=== PATIENT | male | born 1970 | race Caucasian/White ===

== ENCOUNTER 2017-04-28 09:57 | Inpatient (IN) | payer BC, MEDICAID ==
[2017-04-28 10:10] VITALS: BMI 32.3
--- NOTE | 2017-04-28 10:32 | ED PDOC ---
Arrival/HPI - General Chief Complaint: Back Pain Time Seen by Provider: 04/28/17 10:25 Historian: Patient - History of Present Illness Narrative History of Present Illness (Text): 04/28/17 10:25 46 y/o male, no significant pmh, nkda, c/o lt. sided shoulder/flank pain x 1 week. Aching pain, aggravated by the movement, no numbness or tingling, no coughing or night sweat, no dizziness, no rash, admits feels the difficulty get the air in, no coughing, no leg or thigh pain, no numbness or tingling, no other medical or psychological complaints. 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 - Psychiatric Hx Depression: No Hx Emotional Abuse: No Hx Physical Abuse: No Hx Substance Use: No - Surgical History Other/Comment: cyst removed from brain - Anesthesia Hx Anesthesia: Yes Hx Anesthesia Reactions: No - Suicidal Assessment Feels Threatened In Home Enviroment: No Family/Social History - Physician Review Nursing Documentation Reviewed: Yes Family/Social History: Unknown Family HX Smoking Status: Current Some Days Smoker Hx Alcohol Use: Yes Frequency of alcohol use: Socially Hx Substance Use: No Hx Substance Use Treatment: No Allergies/Home Meds Allergies/Adverse Reactions: Allergies No Known Allergies Allergy (Verified 04/28/17 10:10) Home Medications: Home Meds Medication Instructions Recorded Confirmed No Known Home Med 01/07/13 04/28/17 Review of Systems - Review of Systems Constitutional: absent: Fatigue, Fevers Eyes: absent: Vision Changes ENT: absent: Hearing Changes Respiratory: absent: SOB, Cough Cardiovascular: absent: Chest Pain Gastrointestinal: absent: Abdominal Pain, Nausea, Vomiting Musculoskeletal: Back Pain, Myalgias. absent: Arthralgias, Neck Pain, Joint Swelling Skin: absent: Rash, Pruritis Physical Exam Vital Signs Reviewed: Yes Vital Signs Temp Pulse Resp BP Pulse Ox 04/28/17 13:54 106 H 18 137/84 96 04/28/17 11:49 97.4 F L 105 H 22 120/79 97 04/28/17 10:13 97.8 F 100 H 19 123/86 99 Temperature: Afebrile Blood Pressure: Normal Pulse: Regular Respiratory Rate: Normal Appearance: Positive for: Well-Appearing, Non-Toxic Pain Distress: Moderate Mental Status: Positive for: Alert and Oriented X 3 - Systems Exam Head: Present: Atraumatic, Normocephalic Pupils: Present: PERRL Extroacular Muscles: Present: EOMI Conjunctiva: Present: Normal Mouth: Present: Moist Mucous Membranes Neck: Present: Normal Range of Motion, Paraspinal Tenderness (+ttp on the lt. trapezius muscle region. ). No: MIDLINE TENDERNESS Respiratory/Chest: Present: Clear to Auscultation, Good Air Exchange, Decreased Breath Sounds (Left lower lobe region). No: Respiratory Distress, Accessory Muscle Use, Wheezes, Rales, Retracting, Rhonchi, Tachypneic, Tender to Palpation Cardiovascular: Present: Regular Rate and Rhythm, Normal S1, S2. No: Murmurs Abdomen: Present: Normal Bowel Sounds. No: Tenderness, Distention, Peritoneal Signs Back: Present: Normal Inspection, CVA Tenderness (lt. ). No: Midline Tenderness , Paraspinal Tenderness Upper Extremity: Present: Normal Inspection. No: Cyanosis, Edema Lower Extremity: Present: Normal Inspection. No: Edema Neurological: Present: GCS=15, Speech Normal, Motor Func Grossly Intact, Gait Normal, Memory Normal Skin: Present: Warm, Dry, Normal Color. No: Rashes Psychiatric: Present: Alert, Oriented x 3, Normal Insight, Normal Concentration Medical Decision Making ED Course and Treatment: 04/28/17 10:36 -labs/cardiac trop/bnp/d-dimer/ua -cxr/ekg -IVF/toradol -observe and reassess 04/28/17 13:33 -Chest xray: no active disease -EKG: Sinus Tachycardia @ 104 BPM, no ST elevation or depression, T wave inversion noted on lead III. -CTA/CT abdomen and pelvis: show no PE but there is pneumonia with moderate left pleural effusion, mild rt. pleural effusion -Labs are non-significant except: wbc 16.3 (blood cultures and IV rocephine/ azithromycin), d-dimer 1.65 (CTA performed, no PE), BUN 23 (IVF ordered) -Pt. still has pain, morphine 4mg IV ordered -Blood cultures, IV rocephine and azithromycin ordered. 04/28/17 13:57 -I discussed with the patient about the observation into the hospital since there is pleural effusion with consolidatio, on the CT chest with leukocytosis plus tachycardic, pt. agreed -Hospitalist paged. 04/28/17 14:06 -I spoke to Dr. Rosario tidwell, discussed about the case/labs/radiology studies, agreed to admit for observation remote tele, she will follow up the care -I spoke to DR. Whiting and he will put in admission. - Lab Interpretations Lab Results: 04/28/17 11:21 04/28/17 11:21 Lab Results 04/28/17 11:40: Urine Color Yellow, Urine Appearance Clear, Urine pH 6.0, Ur Specific Chadron 1.025, Urine Protein Trace H, Urine Glucose (UA) Negative, Urine Ketones 40 H, Urine Blood Negative, Urine Nitrate Negative, Urine Bilirubin Negative, Urine Urobilinogen 0.2, Ur Leukocyte Esterase Negative, Urine RBC Negative, Urine WBC 0 - 2, Ur Epithelial Cells 0 - 2, Urine Bacteria Small 04/28/17 11:21: Sodium 141, Potassium 4.2, Chloride 100, Carbon Dioxide 30, Anion Gap 15, BUN 23 H, Creatinine 0.9, Est GFR ( Amer) > 60, Est GFR ( Non-Af Amer) > 60, Random Glucose 113 H, Calcium 10.2, Total Bilirubin 1.4 H, AST 56, ALT 99 H, Alkaline Phosphatase 130, Lactate Dehydrogenase 454, Total Creatine Kinase 55, Troponin I < 0.01, NT-Pro-B Natriuret Pep 64.0, Total Protein 8.3, Albumin 4.5, Globulin 3.9, Albumin/Globulin Ratio 1.2, Lipase 87 04/28/17 11:21: D-Dimer, Quantitative 1.65 H 04/28/17 11:21: WBC 16.3 H, RBC 4.28, Hgb 14.7, Hct 43.1, MCV 100.7, MCH 34.3, MCHC 34.1, RDW 12.1, Plt Count 240, MPV 11.0, Gran % 88.8 H, Lymph % (Auto) 6.0 L, Kay % (Auto) 4.9, Eos % (Auto) 0.1 L, Baso % (Auto) 0.2, Gran # 14.46 H, Lymph # 1.0 L, Kay # 0.8 H, Eos # 0.0, Baso # 0.03 I have reviewed the lab results: Yes Interpretation: Abnormal lab values (wbc 16.3, d-dimer 1.65, BUN 23) - RAD Interpretation Radiology Orders: 04/28/17 10:32 CHEST PORTABLE [RAD] Stat 04/28/17 11:41 ABDOMEN & PELVIS [ABD & PELVIS IV CONTRAST ONLY] [CT] Stat ANGIO CHEST PE PROTOCOL [CT] Stat -Chest xray: no active disease CT Chest: IMPRESSION: Dense consolidation with air bronchograms in the left lower lobe consistent with pneumonia. Small left pleural effusion CT Abdomen and pelvis: IMPRESSION: Moderate left pleural effusion consolidation at the left base. Small right pleural effusion. Operations Section Manager: Radiologist - EKG Interpretation EKG Interpretation (Text): 04/28/17 11:49 -EKG: Sinus Tachycardia @ 104 BPM, no ST elevation or depression, T wave inversion noted on lead III. Interpreted by ED Physician: Yes Type: 12 lead EKG - Medication Orders Current Medication Orders: Sodium Chloride (Sodium Chloride 0.9%) 1,000 mls @ 100 mls/hr IV .Q10H KERRY Last Admin: 04/28/17 10:58 Dose: 100 mls/hr Azithromycin (Zithromax 500mg In Ns) 500 mg in 250 mls @ 167 mls/hr IVPB STAT STA PRN Reason: Protocol Stop: 04/28/17 14:54 Discontinued Medications Ceftriaxone Sodium (Rocephin 1 Gram Ivpb) 1 gm in 100 mls @ 200 mls/hr IVPB STAT STA PRN Reason: Protocol Stop: 04/28/17 13:54 Last Admin: 04/28/17 13:40 Dose: 200 mls/hr Iohexol (Omnipaque 350 100 Ml) Confirm Administered Dose 350 mg .ROUTE .STK-MED ONE Stop: 04/28/17 11:51 Ketorolac Tromethamine (Toradol) 30 mg IVP STAT STA Stop: 04/28/17 10:35 Last Admin: 04/28/17 10:58 Dose: 30 mg Morphine Sulfate (Morphine) 4 mg IVP STAT STA Stop: 04/28/17 13:25 Last Admin: 04/28/17 13:40 Dose: 4 mg - PA / SENIOR POWER SCHEDULER / Resident Statement / has reviewed & agrees with the documentation as recorded. Disposition/Present on Arrival - Present on Arrival Any Indicators Present on Arrival: Yes History of DVT/PE: No History of Uncontrolled Diabetes: No Urinary Catheter: No History of Decub. Ulcer: No History Surgical Site Infection Following: None - Disposition Have Diagnosis and Disposition been Completed?: Yes Diagnosis: Pneumonia, Pleural effusion, Leukocytosis, Dehydration Disposition: HOSPITALIZED Disposition Time: 13:39 Patient Plan: Observation, Telemetry Patient Problems: Current Active Problems Problem Status Onset Pneumonia Acute Pleural effusion Acute Leukocytosis Acute Dehydration Acute Condition: STABLE Referrals: PCP,NO [Primary Care Provider] - Follow up with primary Forms: [facility] ([place])
[2017-04-28] MEDS: Sodium Chloride 0.9% 1,000 ML IV SCH ×2 (10:58→17:58)
[2017-04-28 11:22] LABS: ADD MANUAL DIFF? NO
--- NOTE | 2017-04-28 11:23 | RAD ---
HISTORY: lt. sided flank pain COMPARISON: No prior. FINDINGS: LUNGS: No active pulmonary disease. PLEURA: No significant pleural effusion identified, no pneumothorax apparent. CARDIOVASCULAR: Normal. OSSEOUS STRUCTURES: No significant abnormalities. VISUALIZED UPPER ABDOMEN: Normal. OTHER FINDINGS: None. IMPRESSION: No active disease.
[2017-04-28 11:25] LABS: BASO # 0.03 K/mm3 (0.0-2.0); BASO % 0.2 % (0.0-3.0); EOS % 0.1 % (1.5-5.0); GRAN # 14.46 (1.4-6.5); GRAN % 88.8 % (50.0-68.0); HEMATOCRIT 43.1 % (42.0-52.0); MEAN CELL VOLUME 100.7 fl (80.0-105.0); MEAN CORPUSCULAR HEMOGLOBIN 34.3 pg (25.0-35.0); MEAN CORPUSCULAR HGB CONC 34.1 g/dl (31.0-37.0); MONO # 0.8 (0.1-0.6); MONO % 4.9 % (1.0-6.0); PLATELET COUNT 240 10^3/uL (120.0-450.0); RED CELL DISTRIBUTION WIDTH 12.1 % (11.5-14.5); WHITE BLOOD COUNT 16.3 10^3/ul (4.5-11.0)
[2017-04-28 11:36] LABS: ALB/GLOB RATIO 1.2 (1.1-1.8); ALKALINE PHOSPHATASE 130 U/L (38-133); ALT/SGPT 99 U/L (7-56); AST/SGOT 56 U/L (15-59); BILIRUBIN,TOTAL 1.4 mg/dL (0.2-1.3); BLOOD UREA NITROGEN 23 mg/dL (7-21); CALCIUM 10.2 mg/dL (8.4-10.5); CARBON DIOXIDE 30 mmol/L (21-33); CHLORIDE 100 mmol/L (98-107); GFR AFRICAN-AMERICAN > 60; GLUCOSE,RANDOM 113 mg/dL (70-110); LIPASE 87 U/L (23-300); POTASSIUM 4.2 mmol/L (3.6-5.0); SODIUM 141 mmol/L (132-148); TOTAL PROTEIN 8.3 g/dL (5.8-8.3)
[2017-04-28 11:50] LABS: TROPONIN I < 0.01 ng/mL
[2017-04-28] MEDS ORDERED: Iohexol 350 MG/100 ML VIAL ONE (11:50)
[2017-04-28 12:06] LABS: URINE BILIRUBIN NEGATIVE (NEGATIVE); URINE BLOOD NEGATIVE (NEGATIVE); URINE GLUCOSE (UA) NEGATIVE (NEGATIVE); URINE KETONE 40 mg/dL (NEGATIVE); URINE LEUKOCYTE ESTERASE NEGATIVE Leu/uL (NEGATIVE); URINE PROTEIN TRACE mg/dL (<30 mg/dL); URINE UROBILINOGEN 0.2 E.U./dL (<1 E.U./dL)
[2017-04-28 12:07] LABS: URINE APPEARANCE CLEAR (CLEAR); URINE COLOR YELLOW (YELLOW)
[2017-04-28 12:15] LABS: URINE BACTERIA SMALL (NEG); URINE EPITHELIAL CELLS 0 - 2 /hpf (0-5); URINE RBC NEGATIVE /hpf (0-2); URINE WBC 0 - 2 /hpf (0-6)
--- NOTE | 2017-04-28 12:32 | CT ---
PROCEDURE: CT Chest with contrast (Pulmonary Angiogram) HISTORY: d-dimer elevated, flank pain COMPARISON: None available. TECHNIQUE: Axial computed tomography images were obtained of the chest in the pulmonary arterial phase of enhancement. Coronal and sagittal reformatted images were created and reviewed. Intravenous contrast dose: 100 cc of Omni 350 Radiation dose: Total exam DLP = 777 mGy-cm. This CT exam was performed using one or more of the following dose reduction techniques: Automated exposure control, adjustment of the mA and/or kV according to patient size, and/or use of iterative reconstruction technique. FINDINGS: PULMONARY ARTERIES: Unremarkable. No pulmonary embolism. AORTA: No acute findings. No thoracic aortic aneurysm. 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 This is a normal variation LUNGS: There is dense consolidation in the left lower lobe consistent with pneumonia. There is a small effusion PLEURAL SPACES: Unremarkable. No effusion or pneuomothorax. HEART: Unremarkable. No cardiomegaly. No significant pericardial effusion. LYMPH NODES: No lymphadenopathy. BONES, CHEST WALL: Unremarkable. No fracture or destructive lesion OTHER FINDINGS: Unremarkable. IMPRESSION: Dense consolidation with air bronchograms in the left lower lobe consistent with pneumonia. Small left pleural effusion
[2017-04-28] MEDS ORDERED: Morphine 4 mg/ml ISec IVP STA (13:24)
--- NOTE | 2017-04-28 13:24 | CT ---
PROCEDURE: CT Abdomen and Pelvis with contrast HISTORY: lt. sided flank pain COMPARISON: None. TECHNIQUE: Contrast dose: 100 cc of Omnipaque 300 Radiation dose: Total exam DLP = 844 mGy-cm. This CT exam was performed using one or more of the following dose reduction techniques: Automated exposure control, adjustment of the mA and/or kV according to patient size, and/or use of iterative reconstruction technique. FINDINGS: LOWER THORAX: Moderate left pleural effusion consolidation at the left base. Small right pleural effusion. LIVER: Unremarkable. No gross lesion or ductal dilatation. GALLBLADDER AND BILE DUCTS: Unremarkable. PANCREAS: Unremarkable. No gross lesion or ductal dilatation. SPLEEN: Unremarkable. ADRENALS: Unremarkable. No mass. KIDNEYS AND URETERS: Unremarkable. No hydronephrosis. No solid mass. VASCULATURE: Unremarkable. No aortic aneurysm. BOWEL: Unremarkable. No obstruction. No gross mural thickening. APPENDIX: Normal appendix. PERITONEUM: Unremarkable. No free fluid. No free air. LYMPH NODES: Unremarkable. No enlarged lymph nodes. BLADDER: Unremarkable. REPRODUCTIVE: Unremarkable. BONES: No acute fracture. OTHER FINDINGS: None. IMPRESSION: Moderate left pleural effusion consolidation at the left base. Small right pleural effusion.
[2017-04-28] MEDS ORDERED: Azithromycin 500MG/NS 250ml 500 MG/250 ML BAG IVPB STA (13:25)
[2017-04-28] MEDS ORDERED: cefTRIAXone 1 gm 1 GM/100 ML BAG IVPB STA (13:25)
[2017-04-28] MEDS ORDERED: Albuterol-Ipratrop 3 mg / 0.5 (3 ml) UD IH PRN (15:06)
--- NOTE | 2017-04-28 15:30 | CP.PCM.HP ---
<Shirley Ruano - Last Filed: 04/28/17 15:54> History of Present Illness - History of Present Illness History of Present Illness: Patient is a 46 M with pmhx of rheumatic fever as a child, and colloid brain cyst s/p resection presents to the ED for Shoulder pain that started 1 week ago. Patient denies any inciting events. Reports that pain is sharp in nature, worse with deep breathing and radiates to the L subcostal region. States that he used a lidocaine patch, motrin with relief. Pain resolved on Monday however pain returned last night and woke him up out of his sleep. Pain is now constant and increased in intensity. Patient denies any recent sick contacts, recent travel, fevers, chills, nausea, vomiting, CP, SOB, abdominal pain, urinary symptoms, changes in bowel habits. Elevated D Dimer in ED 1.65, CTA chest showing dense consolidation with airbronchograms in LLL c/w pneumonia. ED Course: Azithromycin x 1 dose, Rocephin x 1 dose, NS bolus x 1, Morphine 4mg IVP, Toradol 30 mg Allergies: NKDA Medications: Denies Medical Hx: Rheumatic fever as a child, Colloid cyst Surgical Hx: Removal of colloid cyst (2006), Discectomy (2013) Social Hx: Unemployed, lives with family, smoked 1-2 blunts/day, denies alcohol , tobacco use Family Hx: Mother - HTN, Glaucoma Present on Admission - Present on Admission Any Indicators Present on Admission: No History of DVT/PE: No History of Uncontrolled Diabetes: No Urinary Catheter: No Decubitus Ulcer Present: No Review of Systems - Review of Systems All systems: reviewed and no additional remarkable complaints except - Constitutional Constitutional: absent: Chills, Fatigue, Fever, Headache, Weight Loss, Weakness - EENT Eyes: absent: Change in Vision Ears: absent: Dizziness - Cardiovascular Cardiovascular: absent: Chest Pain, Dyspnea, Edema, Lightheadedness, Palpitations, Syncope - Respiratory Respiratory: absent: Cough, Dyspnea, Wheezing - Gastrointestinal Gastrointestinal: absent: Abdominal Pain, Constipation, Cramping, Diarrhea, Nausea, Vomiting - Genitourinary Genitourinary: absent: Difficulty Urinating, Dysuria, Urinary Frequency - Musculoskeletal Musculoskeletal: absent: Limited Range of Motion, Numbness, Tingling Additional comments: +L Shoulder pain - Neurological Neurological: absent: Dizziness, Headaches, Weakness - Psychiatric Psychiatric: absent: Anxiety, Depression Past Patient History - Infectious Disease Hx of Infectious Diseases: None - Past Social History Smoking Status: Current Some Days Smoker - CARDIAC Hx Cardiac Disorders: Yes 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 - PSYCHIATRIC Hx Depression: No Hx Emotional Abuse: No Hx Physical Abuse: No Hx Substance Use: No - SURGICAL HISTORY Other/Comment: cyst removed from brain - ANESTHESIA Hx Anesthesia: Yes Hx Anesthesia Reactions: No Meds Allergies/Adverse Reactions: Allergies Allergy/AdvReac Type Severity Reaction Status Date / Time No Known Allergies Allergy Verified 04/28/17 10:10 Physical Exam - Constitutional Appears: Well, No Acute Distress - Head Exam Head Exam: ATRAUMATIC, NORMAL INSPECTION - Eye Exam Eye Exam: EOMI, Normal appearance Pupil Exam: NORMAL ACCOMODATION - ENT Exam ENT Exam: Mucous Membranes Moist - Neck Exam Neck exam: Positive for: Normal Inspection Additional comments: +TTP of L trap muscle - Respiratory Exam Respiratory Exam: Decreased Breath Sounds, NORMAL BREATHING PATTERN. absent: Rales, Rhonchi, Wheezes - Cardiovascular Exam Cardiovascular Exam: REGULAR RHYTHM, +S1, +S2. absent: Systolic Murmur - GI/Abdominal Exam GI & Abdominal Exam: Normal Bowel Sounds, Soft. absent: Guarding, Rebound, Rigid, Tenderness - Extremities Exam Extremities exam: Positive for: normal capillary refill, normal inspection, pedal pulses present. Negative for: calf tenderness, pedal edema - Back Exam Back exam: NORMAL INSPECTION. absent: CVA tenderness (L), CVA tenderness (R), rash noted - Neurological Exam Neurological exam: Alert, CN II-XII Intact, Normal Gait, Oriented x3, Reflexes Normal - Psychiatric Exam Psychiatric exam: Normal Affect, Normal Mood - Skin Skin Exam: Normal Color, Warm Results - Vital Signs Recent Vital Signs: Last Vital Signs Temp 97.4 F L 04/28/17 11:49 Pulse 106 H 04/28/17 13:54 Resp 18 04/28/17 13:54 BP 137/84 04/28/17 13:54 Pulse Ox 96 04/28/17 13:54 - Labs Result Diagrams: 04/28/17 11:21 04/28/17 11:21 Assessment & Plan - Assessment and Plan (Free Text) Assessment: 46 M with pmhx of rheumatic fever as a child and colloid cyst presents with 1 week history of shoulder pain that radiates to L subcostal region. CT chest showing dense consolidation with air bronchograms in Left lower lobe consistent with pneumonia, small L pleural effusion Plan: 1. Sepsis likely 2/2 to community acquired pneumonia -Stable, afebrile -Leukocytosis 16.3, tachycardic with HR in 100s -CT chest findings noted above -Received Azithromycin and Rocephin in the ED -Continue Azithromycin and Rocephin -Continue NS @ 100cc/hr -Tylenol prn fever, Motrin prn pain -Duonebs prn SOB -F/U am Labs -F/U urine strep pneumo ag, legionella ag -Encourage ISS use -Encourage PO hydration -F/U blood cx, sputum cx -F/U procalcitonin 2. L sided pleural effusion, likely parapneumotic -R/O cardiac causes -F/U echo, AM CXR -Continue to monitor 3. Transaminitis, Hyperbilirubinemia, mild -AST/ALT: 56/99 T bili: 1.4 -CT abd/pelvis: Liver unremarkable, no gross lesions or ductal dilation, gallbladder unremarkable -F/U hepatitis panel -F/U am CMP, UDS -Avoid hepatotoxic agents 4. GI/DVT PPx -Protonix 40mg PO daily -Lovenox 40mg daily <Katt HERNANDEZ,Yolette - Last Filed: 04/28/17 16:39> Results - Vital Signs Recent Vital Signs: Last Vital Signs Temp 97.4 F L 04/28/17 11:49 Pulse 106 H 04/28/17 13:54 Resp 18 04/28/17 13:54 BP 137/84 04/28/17 13:54 Pulse Ox 96 04/28/17 13:54 - Labs Result Diagrams: 04/28/17 11:21 04/28/17 11:21 Attending/Attestation - Attestation I have personally seen and examined this patient.: Yes I have fully participated in the care of the patient.: Yes I have reviewed all pertinent clinical information: Yes Notes (Text): 04/28/17 16:33 Patient was seen and examined with medical housekeeper. Agreed with resident assessment and plan. 46 M with pmhx of rheumatic fever as a child, and colloid brain cyst s/p resection , SP back surgery and drug abuse is admitted with left lower lobe CAP with parapneumonic effusion.We will continue IV antibiotics, will follow up cultures, we will also check urinary antigen for streptococcal Pneumonia and Legionella .We eliu also monitor LFT. Management plan was discussed in detail with patient Education was provided.
[2017-04-28] MEDS ORDERED: Pneumococcal 23-Valent Vaccine IM ONE (18:28)
[2017-04-28] MEDS: Enoxaparin 40 mg Syringe SC SCH (21:31)
--- NOTE | 2017-04-28 23:34 | CARD ---
APPROVED REPORT EKG Measurement Heart [id number] <Conclusion> Sinus tachycardia Otherwise normal ECG
[2017-04-29] MEDS: Sodium Chloride 0.9% 1,000 ML IV SCH ×2 (04:13→17:02)
[2017-04-29 07:15] LABS: ADD MANUAL DIFF? NO
[2017-04-29 07:20] LABS: BASO # 0.02 K/mm3 (0.0-2.0); BASO % 0.1 % (0.0-3.0); EOS % 0.1 % (1.5-5.0); GRAN # 13.76 (1.4-6.5); GRAN % 85.5 % (50.0-68.0); HEMATOCRIT 38.7 % (42.0-52.0); LYMPH # 1.2 (1.2-3.4); LYMPH % 7.2 % (22.0-35.0); MEAN CELL VOLUME 99.7 fl (80.0-105.0); MEAN CORPUSCULAR HEMOGLOBIN 33.2 pg (25.0-35.0); MEAN CORPUSCULAR HGB CONC 33.3 g/dl (31.0-37.0); MEAN PLATELET VOLUME 11.2 fl (7.0-11.0); MONO # 1.1 (0.1-0.6); MONO % 7.1 % (1.0-6.0); PLATELET COUNT 213 10^3/uL (120.0-450.0); RED CELL DISTRIBUTION WIDTH 12.1 % (11.5-14.5); WHITE BLOOD COUNT 16.1 10^3/ul (4.5-11.0)
[2017-04-29 07:33] LABS: ALB/GLOB RATIO 1.1 (1.1-1.8); ALKALINE PHOSPHATASE 113 U/L (38-133); ALT/SGPT 71 U/L (7-56); AST/SGOT 31 U/L (15-59); BILIRUBIN,TOTAL 1.4 mg/dL (0.2-1.3); BLOOD UREA NITROGEN 14 mg/dL (7-21); CALCIUM 9.2 mg/dL (8.4-10.5); CARBON DIOXIDE 26 mmol/L (21-33); CHLORIDE 103 mmol/L (98-107); GFR AFRICAN-AMERICAN > 60; GLUCOSE,RANDOM 114 mg/dL (70-110); POTASSIUM 3.7 mmol/L (3.6-5.0); SODIUM 138 mmol/L (132-148)
[2017-04-29] MEDS: Pantoprazole 40 mg EC Tab PO SCH (09:54)
[2017-04-29] MEDS: Enoxaparin 40 mg Syringe SC SCH (09:54)
[2017-04-29] MEDS ORDERED: cefTRIAXone 1 gm 1 GM/100 ML BAG IVPB SCH (10:00)
[2017-04-29] MEDS ORDERED: Azithromycin 500MG/NS 250ml 500 MG/250 ML BAG IVPB SCH (10:00)
--- NOTE | 2017-04-29 10:43 | RAD ---
HISTORY: Eval pulm effusion on left COMPARISON: April 28, 2017. TECHNIQUE: Chest PA and lateral FINDINGS: LUNGS: Worsening right lower lobe infiltrate. PLEURA: No discernible associated left pleural effusion. CARDIOVASCULAR: No radiographic findings to suggest acute or significant cardiovascular disease. OSSEOUS STRUCTURES: No acute findings. Healed right rib fractures. VISUALIZED UPPER ABDOMEN: Normal. OTHER FINDINGS: None. IMPRESSION: Worsening left lower lobe infiltrate. No demonstrable pleural effusion.
--- NOTE | 2017-04-29 13:36 | CP.PCM.PN ---
<Deangelo Swain - Last Filed: 04/29/17 14:01> Subjective - Date & Time of Evaluation Date of Evaluation: 04/29/17 Time of Evaluation: 07:05 - Subjective Subjective: Deangelo Swain DO, PGY-1, Hospitalist Services Dr. Bolivar Patient seen and examined at bedside. Nurse reports no events overnight. Patient denies any CP, SOB, N/V/D. Objective - Vital Signs/Intake and Output Vital Signs (last 24 hours): Temp Pulse Resp BP Pulse Ox 98.2 F 119 H 20 143/91 H 96 04/29/17 13:27 04/29/17 05:55 04/29/17 05:55 04/29/17 05:55 04/29/17 05:55 - Medications Medications: Current Medications Acetaminophen (Tylenol 325mg Tab) 650 mg PO Q4 PRN PRN Reason: Fever >100.4 F Last Admin: 04/28/17 23:00 Dose: 650 mg Albuterol/Ipratropium (Duoneb 3 Mg/0.5 Mg (3 Ml) Ud) 3 ml IH [id number] PRN PRN Reason: Shortness of Breath Enoxaparin Sodium (Lovenox) 40 mg SC DAILY KERRY PRN Reason: Protocol Last Admin: 04/29/17 09:54 Dose: 40 mg Sodium Chloride (Sodium Chloride 0.9%) 1,000 mls @ 100 mls/hr IV .Q10H [facility] Last Admin: 04/29/17 04:13 Dose: 100 mls/hr Azithromycin (Zithromax 500mg In Ns) 500 mg in 250 mls @ 167 mls/hr IVPB DAILY KERRY PRN Reason: Protocol Last Admin: 04/29/17 09:55 Dose: 167 mls/hr Piperacillin Sod/Tazobactam Sod (Zosyn 4.5 Gm In Ns 100ml) 4.5 gm in 100 mls @ 200 mls/hr IVPB Q6 KERRY PRN Reason: Protocol Stop: 04/30/17 00:29 Ibuprofen (Motrin Tab) 400 mg PO TID PRN PRN Reason: Pain, moderate (4-7) Last Admin: 04/29/17 10:04 Dose: 400 mg Pantoprazole Sodium (Protonix Ec Tab) 40 mg PO DAILY [facility] Last Admin: 04/29/17 09:54 Dose: 40 mg - Head Exam Additional comments: - Constitutional Appears: Well, No Acute Distress - Head Exam Head Exam: ATRAUMATIC, NORMAL INSPECTION - Eye Exam Eye Exam: EOMI, Normal appearance Pupil Exam: NORMAL ACCOMODATION - ENT Exam ENT Exam: Mucous Membranes Moist - Neck Exam Neck exam: Positive for: Normal Inspection Additional comments: +TTP of L trap muscle - Respiratory Exam Respiratory Exam: Decreased Breath Sounds, NORMAL BREATHING PATTERN. absent: Rales, Rhonchi, Wheezes - Cardiovascular Exam Cardiovascular Exam: REGULAR RHYTHM, +S1, +S2. absent: Systolic Murmur - GI/Abdominal Exam GI & Abdominal Exam: Normal Bowel Sounds, Soft. absent: Guarding, Rebound, Rigid, Tenderness - Extremities Exam Extremities exam: Positive for: normal capillary refill, normal inspection, pedal pulses present. Negative for: calf tenderness, pedal edema - Back Exam Back exam: NORMAL INSPECTION. absent: CVA tenderness (L), CVA tenderness (R), rash noted - Neurological Exam Neurological exam: Alert, CN II-XII Intact, Normal Gait, Oriented x3, Reflexes Normal - Psychiatric Exam Psychiatric exam: Normal Affect, Normal Mood - Skin Skin Exam: Normal Color, Warm Assessment and Plan - Assessment and Plan (Free Text) Assessment: 46 M with pmhx of rheumatic fever as a child and colloid cyst presents with 1 week history of shoulder pain that radiates to L subcostal region. CT chest showing dense consolidation with air bronchograms in Left lower lobe consistent with pneumonia, small L pleural effusion Plan: 1. Sepsis likely 2/2 to community acquired pneumonia -Febrile with leukocytosis -CT chest shows dense consolidation with air bronchograms in the left lower lobe consistent with pneumonia and a small left pleural effusion. - Stopped Ceftriaxone, and started Zosyn given persistent leukocytosis and fever , will consider stopping Azithromycin and starting Vancomycin if fever/ leukocytosis persist. -Continue NS @ 100cc/hr -Tylenol prn fever, Motrin prn pain -Duonebs prn SOB - Urine strep pneumo ag, legionella ag pending - Encourage Incentive Spirometry - Encourage PO hydration - Preliminary blood culture show no growth, gram stain pending - Sputum cultures pending 2. L sided pleural effusion, likely parapneumotic - Echocardiogram performed, read pending CXR - CXR today shows worsening of left lower lobe infiltrate 3. Transaminitis, Hyperbilirubinemia, mild - T bili: 1.4 as was yesterday -CT abd/pelvis: Liver unremarkable, no gross lesions or ductal dilation, gallbladder unremarkable -F/U hepatitis panel -UDS shows cannabinoids positive -Avoid hepatotoxic agents 4. GI/DVT PPx -Protonix 40mg PO daily -Lovenox 40mg daily <Katt HERNANDEZ,Yolette - Last Filed: 04/29/17 15:20> Objective - Vital Signs/Intake and Output Vital Signs (last 24 hours): Temp Pulse Resp BP Pulse Ox 99.4 F 119 H 20 143/91 H 96 04/29/17 14:58 04/29/17 05:55 04/29/17 05:55 04/29/17 05:55 04/29/17 05:55 Intake and Output: 04/29/17 04/29/17 06:59 18:59 Intake Total 240 Balance 240 - Medications Medications: Current Medications Acetaminophen (Tylenol 325mg Tab) 650 mg PO Q4 PRN PRN Reason: Fever >100.4 F Last Admin: 04/29/17 14:58 Dose: 650 mg Albuterol/Ipratropium (Duoneb 3 Mg/0.5 Mg (3 Ml) Ud) 3 ml IH [id number] PRN PRN Reason: Shortness of Breath Enoxaparin Sodium (Lovenox) 40 mg SC DAILY KERRY PRN Reason: Protocol Last Admin: 04/29/17 09:54 Dose: 40 mg Sodium Chloride (Sodium Chloride 0.9%) 1,000 mls @ 100 mls/hr IV .Q10H [facility] Last Admin: 04/29/17 04:13 Dose: 100 mls/hr Azithromycin (Zithromax 500mg In Ns) 500 mg in 250 mls @ 167 mls/hr IVPB DAILY KERRY PRN Reason: Protocol Last Admin: 04/29/17 09:55 Dose: 167 mls/hr Piperacillin Sod/Tazobactam Sod (Zosyn 4.5 Gm In Ns 100ml) 4.5 gm in 100 mls @ 200 mls/hr IVPB Q6 KERRY PRN Reason: Protocol Stop: 04/30/17 00:29 Ibuprofen (Motrin Tab) 400 mg PO TID PRN PRN Reason: Pain, moderate (4-7) Last Admin: 04/29/17 10:04 Dose: 400 mg Pantoprazole Sodium (Protonix Ec Tab) 40 mg PO DAILY [facility]Y Last Admin: 04/29/17 09:54 Dose: 40 mg Attending/Attestation - Attestation I have personally seen and examined this patient.: Yes I have fully participated in the care of the patient.: Yes I have reviewed all pertinent clinical information, including history, physical exam and plan: Yes Notes (Text): 04/29/17 15:19 Patient was seen and examined with medical office receptionist. Agreed with resident assessment and plan. 46 M with pmhx of rheumatic fever as a child, and colloid brain cyst s/p resection , SP back surgery and drug abuse is admitted with left lower lobe CAP with parapneumonic effusion.Patient is febrile, chest X rays showed worsening infilterate, we will stop Rocephin and will start Zosyn.We will follow up cultures. Sinus tachycardia is due to sepsis , will monitor. Management plan was discussed in detail with patient Education was provided.
[2017-04-29] MEDS: Piperacill/Tazo 4.5gm in NS 4.5 GM/100 ML BAG IVPB SCH (17:24)
--- NOTE | 2017-04-29 18:39 | CARD ---
APPROVED REPORT EXAM: Two-dimensional and M-mode echocardiogram with Doppler and color Doppler. INDICATION HX OF RHEUMATIC HEART DISEASE 2D DIMENSIONS Left Atrium (2D)3.8 (1.6-4.0cm)IVSd1.0 (0.7-1.1cm) LVDd4.2 (3.9-5.9cm)PWd1.0 (0.7-1.1cm) LVDs2.6 (2.5-4.0cm)FS (%) 38.3 % LVEF (%)69.0 (>50%) M-Mode DIMENSIONS Aortic Root2.70 (2.2-3.7cm)Aortic Cusp Exc.2.00 (1.5-2.0cm) Aortic Valve AoV Peak Cvzhvxbn055.0cm/Willy Peak GR.13mmHg Mitral Valve MV E Ysnrbamp433.0cm/sMV A Cemztdai74.0cm/sMV MFW13yo E/A ratio1.8MVA (PHT)3.01cm2 TDI Lateral E' Peak V13.00cm/sMedial E' Peak V12.00cm/sE/Lateral E'10.4 E/Medial E'11.3 Pulmonary Valve PV Peak Hoftinqo454.0cm/sPV Peak Grad.4mmHg Tricuspid Valve TR Peak Hvaxiuxa897dx/sRAP [id number] Peak Gr.22mmHg [id number] LEFT VENTRICLE The left ventricle is normal size. There is normal left ventricular wall thickness. The left ventricular function is normal. The left ventricular ejection fraction is within the normal range. There is normal LV segmental wall motion. The left ventricular diastolic function is normal. RIGHT VENTRICLE The right ventricle is normal size. There is normal right ventricular wall thickness. The right ventricular systolic function is normal. ATRIA The left atrium size is normal. The right atrium size is normal. AORTIC VALVE The aortic valve is normal in structure. No aortic regurgitation is present. There is no aortic valvular stenosis. MITRAL VALVE The mitral valve is mildly thickened. There is no mitral valve regurgitation noted. There is no mitral valve stenosis. TRICUSPID VALVE There is trace tricuspid regurgitation. GREAT VESSELS The aortic root is normal in size. PERICARDIAL EFFUSION There is a trace loculated anterior pericardial effusion. <Conclusion> The left ventricle is normal size. There is normal left ventricular wall thickness. The left ventricular function is normal. The left ventricular ejection fraction is within the normal range. There is normal LV segmental wall motion. The left ventricular diastolic function is normal.
[2017-04-30] MEDS: Piperacill/Tazo 4.5gm in NS 4.5 GM/100 ML BAG IVPB SCH ×3 (00:11→18:31)
[2017-04-30 07:10] LABS: ADD MANUAL DIFF? NO
[2017-04-30 07:28] LABS: ALKALINE PHOSPHATASE 120 U/L (38-133); ALT/SGPT 67 U/L (7-56); AST/SGOT 32 U/L (15-59); BILIRUBIN,TOTAL 1.1 mg/dL (0.2-1.3); BLOOD UREA NITROGEN 11 mg/dL (7-21); CARBON DIOXIDE 25 mmol/L (21-33); CHLORIDE 104 mmol/L (98-107); GFR AFRICAN-AMERICAN > 60; GLUCOSE,RANDOM 113 mg/dL (70-110); MAGNESIUM 1.8 mg/dL (1.7-2.2); PHOSPHOROUS 3.3 mg/dL (2.5-4.5); POTASSIUM 3.5 mmol/L (3.6-5.0); SODIUM 139 mmol/L (132-148); TOTAL PROTEIN 6.5 g/dL (5.8-8.3)
[2017-04-30 07:32] LABS: BASO # 0.02 K/mm3 (0.0-2.0); BASO % 0.1 % (0.0-3.0); EOS % 0.2 % (1.5-5.0); GRAN # 15.45 (1.4-6.5); GRAN % 81.8 % (50.0-68.0); HEMATOCRIT 37.5 % (42.0-52.0); LYMPH # 1.9 (1.2-3.4); MEAN CELL VOLUME 99.2 fl (80.0-105.0); MEAN CORPUSCULAR HEMOGLOBIN 33.9 pg (25.0-35.0); MEAN CORPUSCULAR HGB CONC 34.1 g/dl (31.0-37.0); MEAN PLATELET VOLUME 11.2 fl (7.0-11.0); MONO # 1.5 (0.1-0.6); MONO % 7.9 % (1.0-6.0); PLATELET COUNT 213 10^3/uL (120.0-450.0); RED CELL DISTRIBUTION WIDTH 12.1 % (11.5-14.5); WHITE BLOOD COUNT 18.9 10^3/ul (4.5-11.0)
[2017-04-30] MEDS ORDERED: Vancomycin 500 mg Inj IVPB SCH (10:00)
[2017-04-30] MEDS: Pantoprazole 40 mg EC Tab PO SCH (10:23)
[2017-04-30] MEDS: Enoxaparin 40 mg Syringe SC SCH (10:23)
[2017-04-30] MEDS: VANCOMYCIN IV SCH ×2 (10:26→22:25)
[2017-04-30] MEDS: SODIUM CHLORIDE 0.9% IV SCH ×2 (10:26→22:25)
--- NOTE | 2017-04-30 10:35 | CP.PCM.PN ---
<Shirley Ruano - Last Filed: 04/30/17 10:44> Subjective - Date & Time of Evaluation Date of Evaluation: 04/30/17 Time of Evaluation: 08:30 - Subjective Subjective: Shirley Ruano DO, PGY-1, Internal Medicine, Hospitalist Service Patient seen and examined at bedside. Per nursing no acute events overnight. Pain improving. Patient is ambulating and tolerating diet. Denies fevers, chill , cp, palpitations, sob, abdominal pain, urinary symptoms, changes in bowel habits. Objective - Vital Signs/Intake and Output Vital Signs (last 24 hours): Temp Pulse Resp BP Pulse Ox 98.7 F 121 H 21 145/94 H 93 L 04/30/17 08:53 04/30/17 08:53 04/30/17 08:53 04/30/17 08:53 04/30/17 08:53 Intake and Output: 04/30/17 04/30/17 06:59 18:59 Intake Total 820 Balance 820 - Medications Medications: Current Medications Acetaminophen (Tylenol 325mg Tab) 650 mg PO Q4 PRN PRN Reason: Fever >100.4 F Last Admin: 04/29/17 14:58 Dose: 650 mg Albuterol/Ipratropium (Duoneb 3 Mg/0.5 Mg (3 Ml) Ud) 3 ml IH [id number] PRN PRN Reason: Shortness of Breath Enoxaparin Sodium (Lovenox) 40 mg SC DAILY KERRY PRN Reason: Protocol Last Admin: 04/29/17 09:54 Dose: 40 mg Sodium Chloride (Sodium Chloride 0.9%) 1,000 mls @ 100 mls/hr IV .Q10H [facility] Last Admin: 04/29/17 17:02 Dose: 100 mls/hr Azithromycin (Zithromax 500mg In Ns) 500 mg in 250 mls @ 167 mls/hr IVPB DAILY K[facility]Y PRN Reason: Protocol Last Admin: 04/29/17 09:55 Dose: 167 mls/hr Piperacillin Sod/Tazobactam Sod (Zosyn 4.5 Gm In Ns 100ml) 4.5 gm in 100 mls @ 200 mls/hr IVPB Q6 KERRY PRN Reason: Protocol Stop: 04/30/17 18:29 Vancomycin HCl 1,440 mg/ (Sodium Chloride) 500 mls @ 250 mls/hr IV Q12 [facility] Ibuprofen (Motrin Tab) 400 mg PO TID PRN PRN Reason: Pain, moderate (4-7) Last Admin: 04/30/17 04:19 Dose: 400 mg Pantoprazole Sodium (Protonix Ec Tab) [address] [facility] Last Admin: 04/29/17 09:54 Dose: 40 mg - Labs Labs: 04/30/17 07:00 04/30/17 07:00 - Constitutional Appears: Well, No Acute Distress - Head Exam Head Exam: ATRAUMATIC, NORMAL INSPECTION Additional comments: +lipoma - Eye Exam Eye Exam: EOMI, Normal appearance - ENT Exam ENT Exam: Mucous Membranes Moist - Neck Exam Neck Exam: Full ROM - Respiratory Exam Respiratory Exam: Decreased Breath Sounds, Rhonchi, NORMAL BREATHING PATTERN. absent: Rales, Wheezes - Cardiovascular Exam Cardiovascular Exam: REGULAR RHYTHM, +S1, +S2. absent: Tachycardia, Murmur - GI/Abdominal Exam GI & Abdominal Exam: Soft, Normal Bowel Sounds. absent: Distended, Guarding, Rigid, Tenderness - Extremities Exam Extremities Exam: Full ROM, Normal Inspection - Back Exam Back Exam: NORMAL INSPECTION - Neurological Exam Neurological Exam: Alert, Awake, Normal Gait, Oriented x3 - Psychiatric Exam Psychiatric exam: Normal Affect, Normal Mood - Skin Skin Exam: Normal Color, Warm Assessment and Plan - Assessment and Plan (Free Text) Assessment: 46 M with pmhx of rheumatic fever as a child and colloid cyst presents with 1 week history of shoulder pain that radiates to L subcostal region. CT chest showing dense consolidation with air bronchograms in Left lower lobe consistent with pneumonia, small L pleural effusion Plan: 1. Sepsis likely 2/2 to community acquired pneumonia - Stable, afebrile - Leukocytosis slightly worsened today, however clinically patient improving - Ceftriaxone discontinue yesterday - Continue Zosyn (day 2), Vancomycin (day 1) - ID on consult, will, f/u recommendations - F/U am CXR, if worsening pleural effusion, will consider pulm consult - Tylenol prn fever, Motrin prn pain - Duonebs prn SOB - Urine legionalla ag negative, strep pneumo ag pending - Encourage Incentive Spirometry - Blood cx no growth for 24 hours - Sputum cultures pending 2. L sided pleural effusion, likely parapneumotic - Echo - normal - F/U AM CXR - If pleural effusions worseing, will consider pulmonary consult 3. Transaminitis, Hyperbilirubinemia, mild - Transaminitis Improving, T bili wnl - CT abd/pelvis: Liver unremarkable, no gross lesions or ductal dilation, gallbladder unremarkable - F/U hepatitis panel - UDS shows cannabinoids positive - Avoid hepatotoxic agents 4. Hypokalemia - Will give KCL 40meq - F/U am labs 5. GI/DVT PPx - Protonix 40mg PO daily - Lovenox 40mg daily <Yolette Bolivar MD - Last Filed: 04/30/17 14:49> Objective - Vital Signs/Intake and Output Vital Signs (last 24 hours): Temp Pulse Resp BP Pulse Ox 98.7 F 121 H 21 145/94 H 93 L 04/30/17 08:53 04/30/17 08:53 04/30/17 08:53 04/30/17 08:53 04/30/17 08:53 Intake and Output: 04/30/17 04/30/17 06:59 18:59 Intake Total 820 480 Balance 820 480 - Medications Medications: Current Medications Acetaminophen (Tylenol 325mg Tab) 650 mg PO Q4 PRN PRN Reason: Fever >100.4 F Last Admin: 04/29/17 14:58 Dose: 650 mg Albuterol/Ipratropium (Duoneb 3 Mg/0.5 Mg (3 Ml) Ud) 3 ml IH [id number] PRN PRN Reason: Shortness of Breath Enoxaparin Sodium (Lovenox) 40 mg SC DAILY KERRY PRN Reason: Protocol Last Admin: 04/30/17 10:23 Dose: 40 mg Sodium Chloride (Sodium Chloride 0.9%) 1,000 mls @ 100 mls/hr IV .Q10H [facility] Last Admin: 04/29/17 17:02 Dose: 100 mls/hr Piperacillin Sod/Tazobactam Sod (Zosyn 4.5 Gm In Ns 100ml) 4.5 gm in 100 mls @ 200 mls/hr IVPB Q6 K[facility]Y PRN Reason: Protocol Stop: 04/30/17 18:29 Last Admin: 04/30/17 13:32 Dose: 200 mls/hr Vancomycin HCl 1,440 mg/ (Sodium Chloride) 500 mls @ 250 mls/hr IV Q12 [facility] Last Admin: 04/30/17 10:26 Dose: 250 mls/hr Ibuprofen (Motrin Tab) 400 mg PO TID PRN PRN Reason: Pain, moderate (4-7) Last Admin: 04/30/17 04:19 Dose: 400 mg Pantoprazole Sodium (Protonix Ec Tab) [address] [facility] Last Admin: 04/30/17 10:23 Dose: 40 mg - Labs Labs: 04/30/17 07:00 04/30/17 07:00 Attending/Attestation - Attestation I have personally seen and examined this patient.: Yes I have fully participated in the care of the patient.: Yes I have reviewed all pertinent clinical information, including history, physical exam and plan: Yes Notes (Text): 04/30/17 14:47 Patient was seen and examined with medical office asst. 46 M with pmhx of rheumatic fever as a child, and colloid brain cyst s/p resection , SP back surgery and drug abuse is admitted with left lower lobe CAP with parapneumonic effusion.Patient is afebrile today but chest X rays showed worsening infilterate and left sided effusion.Patient is on room air.Antibiotics has been changed to Vancomycin/Zosyn and azithromycin.We will repeat Patient CT chest and will get ID and Pulmonary consult. Blood cultures are negative for any growth. Management plan was discussed in detail with patient Education was provided.
[2017-04-30] MEDS ORDERED: Potassium Chloride 40 mEq/30 ml LIQ UD PO ONE (10:41)
--- NOTE | 2017-04-30 12:18 | RAD ---
HISTORY: Pneumonia. COMPARISON: April 29, 2017. Chest radiograph. TECHNIQUE: Chest PA and lateral FINDINGS: LUNGS: Progressive consolidation left lung now including portions of the left upper lobe. PLEURA: No significant pleural effusion identified. No pneumothorax apparent. CARDIOVASCULAR: No significant interval change compared to the prior examination(s). OSSEOUS STRUCTURES: No significant abnormalities. VISUALIZED UPPER ABDOMEN: Normal. OTHER FINDINGS: None. IMPRESSION: Worsening infiltrate left lower lobe, left upper lobe. Juma appears be a component of volume loss with shift of mediastinal structures to the ipsilateral side.
[2017-04-30] MEDS ORDERED: Iohexol 350 MG/100 ML VIAL ONE (14:21)
[2017-04-30] MEDS ORDERED: guaiFENesin DM 100 mg-10 mg/5 ml UD PO PRN (14:50)
[2017-04-30] MEDS ORDERED: Sodium Chloride 0.9% 500 ML IV STA (15:55)
[2017-04-30] MEDS: Ipratropium 0.02% Inhal Soln (0.5 mg/2.5 ml) UD IH PRN ×2 (16:15→20:21)
--- NOTE | 2017-04-30 16:31 | CT ---
PROCEDURE: CT Chest with contrast HISTORY: WORSENING PNEUMONIA COMPARISON: None. TECHNIQUE: Contiguous axial images were obtained through the chest with intravenous contrast enhancement. Sagittal and coronal reconstructions were performed. IV contrast: 100 cc Omnipaque 350. Radiation dose (DLP): 749.16 mGy-cm. This CT exam was performed using one or more of the following dose reduction techniques: Automated exposure control, adjustment of the mA and/or kV according to patient size, and/or use of iterative reconstruction technique. FINDINGS: LUNGS: Compressive atelectasis primarily affecting the left lower lobe. Less pronounced changes affecting the left upper lobe. Subsegmental atelectasis, scarring right lower lobe MEDIASTINUM: Unremarkable thoracic aorta. No aneurysm or dissection. Normal sized heart. Main pulmonary artery unremarkable. No vascular congestion. No lymphadenopathy. PLEURA: Large left pleural effusion. Orthogonal measurements on the sagittal images 6 0.1 x 16.8 cm. Mean Hounsfield unit values do not exceed 18.2 Trace right pleural effusion. BONES: No fracture. No destructive lesion. UPPER ABDOMEN: Grossly unremarkable. OTHER FINDINGS: None. IMPRESSION: Large left pleural effusion with compressive atelectasis left lower lobe, left upper lobe. Trace right pleural effusion. Platelike atelectasis right lower lobe.
[2017-04-30] MEDS ORDERED: Albuterol-Ipratrop 3 mg / 0.5 (3 ml) UD IH SCH (20:00)
[2017-04-30] MEDS: Acetylcysteine 20% Inhal Sol (30ml) IH SCH (20:20)
[2017-04-30] MEDS: Budesonide 0.5 mg/2 ml Inhal Susp UD IH SCH (20:21)
[2017-05-01] MEDS: Piperacill/Tazo 4.5gm in NS 4.5 GM/100 ML BAG IVPB SCH ×4 (01:41→18:42)
[2017-05-01 07:09] LABS: ADD MANUAL DIFF? NO
[2017-05-01 07:20] LABS: BASO # 0.03 K/mm3 (0.0-2.0); BASO % 0.2 % (0.0-3.0); EOS # 0.1 (0.0-0.7); EOS % 0.3 % (1.5-5.0); GRAN # 15.72 (1.4-6.5); HEMATOCRIT 37.3 % (42.0-52.0); LYMPH # 1.5 (1.2-3.4); MEAN CELL VOLUME 101.1 fl (80.0-105.0); MEAN CORPUSCULAR HEMOGLOBIN 32.8 pg (25.0-35.0); MEAN CORPUSCULAR HGB CONC 32.4 g/dl (31.0-37.0); MEAN PLATELET VOLUME 11.4 fl (7.0-11.0); MONO # 1.6 (0.1-0.6); MONO % 8.5 % (1.0-6.0); PLATELET COUNT 221 10^3/uL (120.0-450.0); RED CELL DISTRIBUTION WIDTH 12.4 % (11.5-14.5); WHITE BLOOD COUNT 18.9 10^3/ul (4.5-11.0)
[2017-05-01 07:27] LABS: INR 1.06 (0.93-1.08); PARTIAL THROMBOPLASTIN TIME 30.6 Seconds (23.7-30.8)
[2017-05-01 07:40] LABS: ALKALINE PHOSPHATASE 155 U/L (38-133); ALT/SGPT 87 U/L (7-56); AST/SGOT 41 U/L (15-59); BILIRUBIN,TOTAL 1.1 mg/dL (0.2-1.3); BLOOD UREA NITROGEN 9 mg/dL (7-21); CARBON DIOXIDE 28 mmol/L (21-33); CHLORIDE 103 mmol/L (95-110); GFR AFRICAN-AMERICAN > 60; GLUCOSE,RANDOM 108 mg/dL (70-110); MAGNESIUM 1.8 mg/dL (1.7-2.2); POTASSIUM 4.3 mmol/L (3.6-5.0); SODIUM 141 mmol/L (132-148); TOTAL PROTEIN 6.6 g/dL (5.8-8.3)
[2017-05-01] MEDS: Acetylcysteine 20% Inhal Sol (30ml) IH SCH (07:45)
[2017-05-01] MEDS: Budesonide 0.5 mg/2 ml Inhal Susp UD IH SCH ×2 (07:46→20:03)
[2017-05-01] MEDS: Ipratropium 0.02% Inhal Soln (0.5 mg/2.5 ml) UD IH PRN ×2 (07:46→20:03)
--- NOTE | 2017-05-01 09:52 | CON ---
DATE: 04/30/2017 REQUESTING PHYSICIAN: Dr. Arina Chase CHIEF COMPLAINT: The patient presented with shoulder and back pain for about 1-2 weeks prior to coming to the emergency room. HISTORY OF PRESENT ILLNESS: Mr. Sood is a 46-year-old male with a history of back pain and a benign brain cyst for which he had surgery in the past. The patient states that for about the last 2 weeks, he has had some pain in his back in the left shoulder. He thought the pain was related to his usual back pain, but realized that it was he had some cough and congestion and developed fever and came to the emergency room. It was noted that on chest x-ray, he had a left lower lobe infiltrate with a pleural effusion and some atelectasis. The patient during the hospital stay, the x-ray has progressed with larger pleural effusion and infiltrates, but today the patient states that clinically he feels better. He has less cough. No present fever. Left pleuritic chest pain, able to walk around even though he does have some mild dyspnea on exertion. PAST MEDICAL HISTORY: As above. ALLERGIES: HE HAS NO KNOWN ALLERGIES. CURRENT MEDICATIONS: Can be evaluated as per the nurse's intake form. SOCIAL HISTORY: No history of smoking. Social drinker and no drug abuse. REVIEW OF SYSTEMS: CONSTITUTIONAL: All negative. HEENT: All negative. RESPIRATORY: Presented with some cough and shortness of breath with pneumonia. CARDIOVASCULAR: All negative. GASTROINTESTINAL: All negative. : All negative. MUSCULOSKELETAL: All negative. NEUROPSYCHIATRIC: All negative. HEMATOLOGIC: All negative. IMMUNOLOGIC: All negative. ENDOCRINE: All negative. INTEGRITY: All negative. PHYSICAL EXAMINATION: VIAL SIGNS: His temperature is 98.7, his pulse is 121, respirations are 21, and BP is 145/94. O2 saturation is 93% on room air. HEENT: Head is atraumatic and normocephalic. Eyes, reactive to light. Ears, nose, and throat seemed to be within normal limits. NECK: Supple. No JVD. No thyroid enlargement. No lymph nodes. HEART: Has regular rate, and rhythm. Normal S1 and S2, but tachycardic. LUNGS: Reveal decreased breath sounds at the left base. ABDOMEN: Soft, nontender, normal bowel sounds. No organomegaly noted. GENITALIA AND RECTAL: Deferred. MUSCULOSKELETAL: No joint deformities. EXTREMITIES: Reveal no edema. NEUROLOGIC: He seemed to be grossly intact. LABORATORY DATA: As far as his laboratories concerned; his white count is 18.9, hemoglobin 12.8, and hematocrit 37.5 with platelets of 213,000. The patient's sodium is 139, potassium 3.5, chloride 104, CO2 of 25 with a BUN of 11, creatinine of 0.9, and a glucose of 113. Chest x-ray reveals worsening infiltrate at the left lower lobe and left upper lobe. May be left-sided loss of volume with some shift to the mediastinum to the ipsilateral side, and there may be a component of pleural effusion. IMPRESSION: The patient has left lower lobe pneumonia. They have some left-sided lower lobe atelectasis and possible pleural effusion. He does have pleuritic chest pain as well. The patient has a history of chronic back pain and has a history of surgical removal of a benign brain cyst. PLAN: We will continue with aggressive pulmonary toilet. The patient will start bronchodilators of DuoNeb as well as Pulmicort and Mucomyst. The patient is, as we speak, down to get a repeat CT scan of the chest. If pleural effusion is visualized, we would recommend a thoracentesis as per IR and continue antibiotics of Zosyn and vancomycin. The patient has been started on Robitussin DM p.r.n. as well. He is on Lovenox prophylactically, and we will continue to follow along with other consultants and the primary care doctor. Estiven Bagley MD
[2017-05-01] MEDS: Pantoprazole 40 mg EC Tab PO SCH (10:00)
[2017-05-01] MEDS: VANCOMYCIN IV SCH (10:37)
[2017-05-01] MEDS: SODIUM CHLORIDE 0.9% IV SCH (10:37)
--- NOTE | 2017-05-01 10:53 | CP.PCM.PN ---
<Shirley Ruano - Last Filed: 05/01/17 11:09> Subjective - Date & Time of Evaluation Date of Evaluation: 05/01/17 Time of Evaluation: 07:30 - Subjective Subjective: Shirley Ruano DO, PGY-1, Internal Medicine, Hospitalist Service Patient seen and examined at bedside. Per nursing no acute events overnight. Patient is feeling better. NPO for possible Thoracentesis today with IR. Denies any headache, dizziness, cp, sob, palpitations, abd pain, urinary symptoms, changes in bowel habits. Objective - Vital Signs/Intake and Output Vital Signs (last 24 hours): Temp Pulse Resp BP Pulse Ox 99.7 F H 120 H 21 136/89 99 05/01/17 08:00 05/01/17 08:00 05/01/17 08:00 05/01/17 08:00 05/01/17 08:00 Intake and Output: 05/01/17 05/01/17 06:59 18:59 Intake Total 1200 Balance 1200 - Medications Medications: Current Medications Acetaminophen (Tylenol 325mg Tab) 650 mg PO Q4 PRN PRN Reason: Fever >100.4 F Last Admin: 05/01/17 01:41 Dose: 650 mg Acetylcysteine (Mucomyst 20% Inhal Love (30ml)) 2 ml IH Q12 KERRY Last Admin: 04/30/17 20:20 Dose: 2 ml Budesonide (Pulmicort Respules) 0.5 mg IH [id number] KERRY Last Admin: 05/01/17 07:46 Dose: 0.5 mg Enoxaparin Sodium (Lovenox) 40 mg SC DAILY KERRY PRN Reason: Protocol Last Admin: 04/30/17 10:23 Dose: 40 mg Guaifenesin/Dextromethorphan (Robitussin Dm) 5 ml PO Q6H PRN PRN Reason: Cough Sodium Chloride (Sodium Chloride 0.9%) 1,000 mls @ 100 mls/hr IV .Q10H [facility] Last Admin: 04/29/17 17:02 Dose: 100 mls/hr Piperacillin Sod/Tazobactam Sod (Zosyn 4.5 Gm In Ns 100ml) 4.5 gm in 100 mls @ 200 mls/hr IVPB Q6 KERRY PRN Reason: Protocol Stop: 05/07/17 12:01 Last Admin: 05/01/17 06:23 Dose: 200 mls/hr Vancomycin HCl 1,440 mg/ (Sodium Chloride) 500 mls @ 250 mls/hr IV Q12 KERRY Last Admin: 05/01/17 10:37 Dose: 250 mls/hr Doxycycline Hyclate 100 mg/ (Sodium Chloride) 100 mls @ 100 mls/hr IVPB Q12 KERRY PRN Reason: Protocol Last Admin: 04/30/17 22:25 Dose: 100 mls/hr Ibuprofen (Motrin Tab) 400 mg PO TID PRN PRN Reason: Pain, moderate (4-7) Last Admin: 04/30/17 04:19 Dose: 400 mg Ipratropium [place] (Atrovent) 0.5 mg IH [id number] PRN PRN Reason: Shortness of Breath Last Admin: 05/01/17 07:46 Dose: 0.5 mg Pantoprazole Sodium (Protonix Ec Tab) 40 mg PO DAILY [facility] Last Admin: 04/30/17 10:23 Dose: 40 mg - Labs Labs: 05/01/17 07:07 05/01/17 07:07 PT 11.5 Seconds (9.9-11.8) 05/01/17 07:07 INR 1.06 (0.93-1.08) 05/01/17 07:07 APTT 30.6 Seconds (23.7-30.8) 05/01/17 07:07 - Constitutional Appears: Well, No Acute Distress - Head Exam Head Exam: ATRAUMATIC, NORMAL INSPECTION - Eye Exam Eye Exam: EOMI, Normal appearance Pupil Exam: NORMAL ACCOMODATION - ENT Exam ENT Exam: Mucous Membranes Moist - Neck Exam Neck Exam: Normal Inspection - Respiratory Exam Respiratory Exam: Decreased Breath Sounds, Rhonchi, NORMAL BREATHING PATTERN. absent: Rales, Wheezes - Cardiovascular Exam Cardiovascular Exam: REGULAR RHYTHM, +S1, +S2 - GI/Abdominal Exam GI & Abdominal Exam: Soft, Tenderness, Normal Bowel Sounds. absent: Guarding, Rigid, Rebound - Extremities Exam Extremities Exam: Full ROM, Normal Inspection. absent: Calf Tenderness Additional comments: +SCDs - Back Exam Back Exam: NORMAL INSPECTION - Neurological Exam Neurological Exam: Alert, Awake, Normal Gait, Oriented x3 - Psychiatric Exam Psychiatric exam: Normal Affect, Normal Mood - Skin Skin Exam: Normal Color Assessment and Plan - Assessment and Plan (Free Text) Assessment: 46 M with pmhx of rheumatic fever as a child and colloid cyst presents with 1 week history of shoulder pain that radiates to L subcostal region. CT chest showing dense consolidation with air bronchograms in Left lower lobe consistent with pneumonia, small L pleural effusion Plan: 1. Sepsis likely 2/2 to community acquired pneumonia - Stable, afebrile - Leukocytosis unchanged, 18.9 - Clinically patient improving - Continue Zosyn (day 3), Vancomycin (day 2), doxycycline (day 2) - ID on consult, will, f/u recommendations - Repeat CT Chest: Large L pleural effusion with compressive atelectasis in LLL and DARYN, Trace R pleural effusion - Pumonary on consult, f/u recommendations - Tylenol prn fever, Motrin prn pain - Duonebs prn SOB, Mucomyst, pulmicort - Urine legionalla ag negative, strep pneumo ag pending - Encourage Incentive Spirometry - Blood cx no growth - Sputum cultures pending 2. L sided pleural effusion, likely parapneumotic - Echo - normal EF - Repeat Chest CT: Large L pleural effusion with compressive atelectasis in LLL and DARYN, Trace R pleural effusion - IR consulted for possible Thoracentesis, Lovenox held 3. Transaminitis, Hyperbilirubinemia, mild - AST/ALT 41/87 - T bili wnl - CT abd/pelvis: Liver unremarkable, no gross lesions or ductal dilation, gallbladder unremarkable - Hepatitis panel negative - UDS shows cannabinoids positive - Continue to monitor - Avoid hepatotoxic agents 4. Hypokalemia - Resolved, continue to monitor 5. GI/DVT PPx - Protonix 40mg PO daily - Lovenox held for possible thoracentesis with IR <Yolette Bolivar MD - Last Filed: 05/01/17 13:32> Objective - Vital Signs/Intake and Output Vital Signs (last 24 hours): Temp Pulse Resp BP Pulse Ox 99.7 F H 120 H 21 136/89 99 05/01/17 08:00 05/01/17 08:00 05/01/17 08:00 05/01/17 08:00 05/01/17 08:00 Intake and Output: 05/01/17 05/01/17 06:59 18:59 Intake Total 1200 Balance 1200 - Medications Medications: Current Medications Acetaminophen (Tylenol 325mg Tab) 650 mg PO Q4 PRN PRN Reason: Fever >100.4 F Last Admin: 05/01/17 01:41 Dose: 650 mg Acetylcysteine (Acetylcysteine 20%) 2 ml IH [id number] [facility] Budesonide (Pulmicort Respules) 0.5 mg IH [id number] [facility] Last Admin: 05/01/17 07:46 Dose: 0.5 mg Enoxaparin Sodium (Lovenox) 40 mg SC DAILY KERRY PRN Reason: Protocol Last Admin: 04/30/17 10:23 Dose: 40 mg Guaifenesin/Dextromethorphan (Robitussin Dm) 5 ml PO Q6H PRN PRN Reason: Cough Sodium Chloride (Sodium Chloride 0.9%) 1,000 mls @ 100 mls/hr IV .Q10H [facility] Last Admin: 04/29/17 17:02 Dose: 100 mls/hr Piperacillin Sod/Tazobactam Sod (Zosyn 4.5 Gm In Ns 100ml) 4.5 gm in 100 mls @ 200 mls/hr IVPB Q6 KERRY PRN Reason: Protocol Stop: 05/07/17 12:01 Last Admin: 05/01/17 06:23 Dose: 200 mls/hr Vancomycin HCl 1,440 mg/ (Sodium Chloride) 500 mls @ 250 mls/hr IV Q12 [facility] Last Admin: 05/01/17 10:37 Dose: 250 mls/hr Doxycycline Hyclate 100 mg/ (Sodium Chloride) 100 mls @ 100 mls/hr IVPB Q12 KERRY PRN Reason: Protocol Last Admin: 04/30/17 22:25 Dose: 100 mls/hr Ibuprofen (Motrin Tab) 400 mg PO TID PRN PRN Reason: Pain, moderate (4-7) Last Admin: 04/30/17 04:19 Dose: 400 mg Ipratropium [place] (Atrovent) 0.5 mg IH [id number] PRN PRN Reason: Shortness of Breath Last Admin: 05/01/17 07:46 Dose: 0.5 mg Pantoprazole Sodium (Protonix Ec Tab) 40 mg PO DAILY [facility] Last Admin: 04/30/17 10:23 Dose: 40 mg - Labs Labs: 05/01/17 07:07 05/01/17 07:07 PT 11.5 Seconds (9.9-11.8) 05/01/17 07:07 INR 1.06 (0.93-1.08) 05/01/17 07:07 APTT 30.6 Seconds (23.7-30.8) 05/01/17 07:07 Attending/Attestation - Attestation I have personally seen and examined this patient.: Yes I have fully participated in the care of the patient.: Yes I have reviewed all pertinent clinical information, including history, physical exam and plan: Yes Notes (Text): 05/01/17 13:29 Patient was seen and examined with medical support assistant. 46 M with pmhx of rheumatic fever as a child, and colloid brain cyst s/p resection , SP back surgery and drug abuse is admitted with left lower lobe CAP with parapneumonic effusion.Patient repeat CT showed worsening left sided Pleural effusion, concern for empyema.Antibiotics has been changed to Vancomycin and Zosyn.Blood cultures are negative for any growth.IR has been consulted for thoracentesis.We will follow up fluid studies.We will also check CARTER,CRP ID and Pulmonary are following. Case was discussed with ID and Pulmonary. Management plan was discussed in detail with patient Education was provided.
[2017-05-01] MEDS ORDERED: Oxycodone/Acetaminophen 5/325 mg Tab PO PRN (13:28)
[2017-05-01 13:52] LABS: BODY FLUID TYPE PLEURAL
[2017-05-01 14:03] LABS: BF GROSS APPEARANCE SL CLOUDY (CLEAR)
[2017-05-01 14:04] LABS: BODY FLUID TOTAL COUNT 100 (0-0)
--- NOTE | 2017-05-01 15:02 | CP.PCM.CON ---
History of Present Illness - History of Present Illness History of Present Illness: 46 year old male with PMH of rheumatic fever as a child, brain cyst S/P resection, S/P discectomy, obesity with BMI 34 initially came in to [facility] complaininof left shoulder pain associated with breathing as well as SOB. He was found to have probable left sided pneumonia with pleural effusion. He was started on Rocephin and Zithromax but the patient continues to have fever and chills, as well as SOB. Repeat CT chest shows worsening of pneumonia associated with increasing left sided pleural effusion. Infectious Diseases consult is requested to further evaluate and manage. 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 - NEUROLOGICAL Hx Seizures: Yes (2006) Other/Comment: cyst removed from brain by dr choe 2006 was causing pt to have seizures - MUSCULOSKELETAL/RHEUMATOLOGICAL Hx Falls: No - GASTROINTESTINAL Hx Diverticulitis: Yes - PSYCHIATRIC Hx Substance Use: Yes (smokes pot 3x a wk) - SURGICAL HISTORY Other/Comment: cyst removed from brain 2006, discectomy lower back - ANESTHESIA Hx Anesthesia: Yes Hx Anesthesia Reactions: No Meds Allergies/Adverse Reactions: Allergies Allergy/AdvReac Type Severity Reaction Status Date / Time No Known Allergies Allergy Verified 04/28/17 10:10 - Medications Medications: Current Medications Acetaminophen (Tylenol 325mg Tab) 650 mg PO Q4 PRN PRN Reason: Fever >100.4 F Last Admin: 04/30/17 15:48 Dose: 650 mg Acetylcysteine (Mucomyst 20% Inhal Love (30ml)) 2 ml IH Q12 KERRY Budesonide (Pulmicort Respules) 0.5 mg IH [id number] KERRY Enoxaparin Sodium (Lovenox) 40 mg SC DAILY KERRY PRN Reason: Protocol Last Admin: 04/30/17 10:23 Dose: 40 mg Guaifenesin/Dextromethorphan (Robitussin Dm) 5 ml PO Q6H PRN PRN Reason: Cough Sodium Chloride (Sodium Chloride 0.9%) 1,000 mls @ 100 mls/hr IV .Q10H KERRY Last Admin: 04/29/17 17:02 Dose: 100 mls/hr Piperacillin Sod/Tazobactam Sod (Zosyn 4.5 Gm In Ns 100ml) 4.5 gm in 100 mls @ 200 mls/hr IVPB Q6 KERRY PRN Reason: Protocol Stop: 05/07/17 12:01 Last Admin: 04/30/17 13:32 Dose: 200 mls/hr Vancomycin HCl 1,440 mg/ (Sodium Chloride) 500 mls @ 250 mls/hr IV Q12 KERRY Last Admin: 04/30/17 10:26 Dose: 250 mls/hr Doxycycline Hyclate 100 mg/ (Sodium Chloride) 100 mls @ 100 mls/hr IVPB Q12 KERRY PRN Reason: Protocol Ibuprofen (Motrin Tab) 400 mg PO TID PRN PRN Reason: Pain, moderate (4-7) Last Admin: 04/30/17 04:19 Dose: 400 mg Ipratropium [place] (Atrovent) 0.5 mg IH [id number] PRN PRN Reason: Shortness of Breath Last Admin: 04/30/17 16:15 Dose: 0.5 mg Pantoprazole Sodium (Protonix Ec Tab) 40 mg PO DAILY [facility] Last Admin: 04/30/17 10:23 Dose: 40 mg Physical Exam - Constitutional Appears: Other (feels weak) - Head Exam Head Exam: NORMAL INSPECTION - ENT Exam ENT Exam: Mucous Membranes Moist - Neck Exam Neck exam: Negative for: Lymphadenopathy, Meningismus - Respiratory Exam Respiratory Exam: Decreased Breath Sounds - Cardiovascular Exam Cardiovascular Exam: +S1, +S2 - GI/Abdominal Exam GI & Abdominal Exam: Soft. absent: Tenderness Results - Vital Signs Recent Vital Signs: Last Vital Signs Temp 100.4 F H 04/30/17 15:48 Pulse 88 04/30/17 16:17 Resp 21 04/30/17 08:53 BP 145/94 H 04/30/17 08:53 Pulse Ox 93 L 04/30/17 08:53 - Labs Result Diagrams: 05/01/17 07:07 05/01/17 07:07 Labs: Laboratory Results - last 24 hr 04/29/17 04/30/17 04/30/17 13:05 07:00 07:00 WBC 18.9 H RBC 3.78 Hgb 12.8 L Hct 37.5 L MCV 99.2 MCH 33.9 MCHC 34.1 RDW 12.1 Plt Count 213 MPV 11.2 H Gran % 81.8 H Lymph % (Auto) 10.0 L Tate % (Auto) 7.9 H Eos % (Auto) 0.2 L Baso % (Auto) 0.1 Gran # 15.45 H Lymph # 1.9 Tate # 1.5 H Eos # 0.0 Baso # 0.02 Sodium 139 Potassium 3.5 L Chloride 104 Carbon Dioxide 25 Anion Gap 14 BUN 11 Creatinine 0.9 Est GFR ( Amer) > 60 Est GFR (Non-Af Amer) > 60 Random Glucose 113 H Calcium 9.0 Phosphorus 3.3 Magnesium 1.8 Total Bilirubin 1.1 AST 32 ALT 67 H Alkaline Phosphatase 120 Total Protein 6.5 Albumin 3.3 Globulin 3.2 Albumin/Globulin Ratio 1.0 L Ur L.pneumophila Ag Negative Assessment & Plan - Assessment and Plan (Free Text) Plan: Assessment Sepsis due to left sided severe community-acquired pneumonia with associated left parapneumonic effusion suspicious for empyema rheumatic fever as a child brain cyst S/P resection S/P discectomy obesity with BMI 34 Plan Changed antibiotics to Vancomycin, Zosyn and will continue Zithromax; follow up plan for thoracentesis will continue to monitor clinically, trend WBC count, trend fever curve
--- NOTE | 2017-05-01 15:12 | CP.PCM.PN ---
Subjective - Date & Time of Evaluation Date of Evaluation: 05/01/17 Time of Evaluation: 13:30 - Subjective Subjective: 46 y/o M seen after his US thoracentesis Currently has minimal complaints but does mention that he has L pleuritic chest pain x 3 days and SOB. He also mentions 20lb weight loss in 1 month . Productive sputum dark brown Objective - Vital Signs/Intake and Output Vital Signs (last 24 hours): Temp Pulse Resp BP Pulse Ox 99.7 F H 120 H 21 136/89 99 05/01/17 08:00 05/01/17 08:00 05/01/17 08:00 05/01/17 08:00 05/01/17 08:00 Intake and Output: 05/01/17 05/01/17 06:59 18:59 Intake Total 1200 Balance 1200 - Medications Medications: Current Medications Acetaminophen (Tylenol 325mg Tab) 650 mg PO Q4 PRN PRN Reason: Fever >100.4 F Last Admin: 05/01/17 01:41 Dose: 650 mg Acetylcysteine (Acetylcysteine 20%) 2 ml IH [id number] KERRY Budesonide (Pulmicort Respules) 0.5 mg IH [id number] KERRY Last Admin: 05/01/17 07:46 Dose: 0.5 mg Enoxaparin Sodium (Lovenox) 40 mg SC DAILY KERRY PRN Reason: Protocol Last Admin: 04/30/17 10:23 Dose: 40 mg Guaifenesin/Dextromethorphan (Robitussin Dm) 5 ml PO Q6H PRN PRN Reason: Cough Sodium Chloride (Sodium Chloride 0.9%) 1,000 mls @ 100 mls/hr IV .Q10H KERRY Last Admin: 04/29/17 17:02 Dose: 100 mls/hr Piperacillin Sod/Tazobactam Sod (Zosyn 4.5 Gm In Ns 100ml) 4.5 gm in 100 mls @ 200 mls/hr IVPB Q6 KERRY PRN Reason: Protocol Stop: 05/07/17 12:01 Last Admin: 05/01/17 06:23 Dose: 200 mls/hr Vancomycin HCl 1,440 mg/ (Sodium Chloride) 500 mls @ 250 mls/hr IV Q12 KERRY Last Admin: 05/01/17 10:37 Dose: 250 mls/hr Doxycycline Hyclate 100 mg/ (Sodium Chloride) 100 mls @ 100 mls/hr IVPB Q12 KERRY PRN Reason: Protocol Last Admin: 04/30/17 22:25 Dose: 100 mls/hr Ibuprofen (Motrin Tab) 400 mg PO TID PRN PRN Reason: Pain, moderate (4-7) Last Admin: 04/30/17 04:19 Dose: 400 mg Ipratropium [place] (Atrovent) 0.5 mg IH [id number] PRN PRN Reason: Shortness of Breath Last Admin: 05/01/17 07:46 Dose: 0.5 mg Oxycodone/Acetaminophen (Percocet 5/325 Mg Tab) 1 tab PO Q4H PRN PRN Reason: Pain, moderate (4-7) Stop: 05/04/17 13:29 Pantoprazole Sodium (Protonix Ec Tab) 40 mg PO DAILY KERRY Last Admin: 04/30/17 10:23 Dose: 40 mg - Labs Labs: 05/01/17 07:07 05/01/17 07:07 PT 11.5 Seconds (9.9-11.8) 05/01/17 07:07 INR 1.06 (0.93-1.08) 05/01/17 07:07 APTT 30.6 Seconds (23.7-30.8) 05/01/17 07:07 - Constitutional Appears: Well - Head Exam Head Exam: ATRAUMATIC - Eye Exam Pupil Exam: NORMAL ACCOMODATION, PERRL - ENT Exam ENT Exam: Mucous Membranes Moist, Normal Exam - Neck Exam Neck Exam: Normal Inspection - Respiratory Exam Respiratory Exam: Decreased Breath Sounds - Cardiovascular Exam Cardiovascular Exam: REGULAR RHYTHM - GI/Abdominal Exam GI & Abdominal Exam: Normal Bowel Sounds - Extremities Exam Extremities Exam: Normal Inspection - Back Exam Back Exam: NORMAL INSPECTION - Neurological Exam Neurological Exam: Alert, Normal Gait, Oriented x3 Assessment and Plan - Assessment and Plan (Free Text) Assessment: 46 y/o M w/ large L rapid accumulating Pleural effusion Elevated WBC, Fevers and Inflitrates on the cxr. Likely Parapneumonic effusion . Rapid accumulation of Pleural effusion Will need to evaluate Pleural effusion Lights criteria r/o Exudate. Will need repeat Ct chest in a.m to evaluate the lungs clearly. All pleural studies to be sent including cytology. No smokin ghx and no other risk factors noted. Continue w/ IV abx and f/u CX. malignancy vs infectious causes .
--- NOTE | 2017-05-01 18:35 | US ---
PROCEDURE: Ultrasound guided left thoracentesis. CLINICAL HISTORY: Large left pleural effusion. Evaluate for by empyema. PHYSICIAN(S): Glenn Lares MD. TECHNIQUE: The relative risks and indications of the procedure were explained to the patient and consent obtained. The patient was placed in a sitting position on the stretcher and sonography of the right chest performed. This revealed a moderate sized leftpleural effusion. A left posterolateral intercostal approach was selected and the area prepped and draped usual sterile fashion. 1% Xylocaine was used to anesthetize the skin and soft tissues. A 7 [place] thoracentesis catheter was trocared into the left pleural cavity and 1000 ccof yellow-brown fluid aspirated. Specimens were sent to the lab. IMPRESSION: 1. Ultrasound guided left thoracentesis. 1000 cc of yellow yellow-brownfluid were aspirated. The appropriate labs were sent.
[2017-05-01] MEDS: Acetylcysteine 20% Inhal Soln (4ml) IH SCH (20:03)
[2017-05-02] MEDS: Piperacill/Tazo 4.5gm in NS 4.5 GM/100 ML BAG IVPB SCH ×4 (00:19→17:27)
[2017-05-02] MEDS: SODIUM CHLORIDE 0.9% IV SCH ×3 (00:57→23:15)
[2017-05-02] MEDS: VANCOMYCIN IV SCH ×3 (00:57→23:15)
[2017-05-02 07:38] LABS: ADD MANUAL DIFF? NO
[2017-05-02 07:41] LABS: BASO # 0.03 K/mm3 (0.0-2.0); BASO % 0.2 % (0.0-3.0); EOS # 0.2 (0.0-0.7); EOS % 1.5 % (1.5-5.0); GRAN # 11.38 (1.4-6.5); GRAN % 79.5 % (50.0-68.0); HEMATOCRIT 34.8 % (42.0-52.0); LYMPH # 1.4 (1.2-3.4); LYMPH % 9.6 % (22.0-35.0); MEAN CELL VOLUME 99.4 fl (80.0-105.0); MEAN CORPUSCULAR HEMOGLOBIN 32.6 pg (25.0-35.0); MEAN CORPUSCULAR HGB CONC 32.8 g/dl (31.0-37.0); MEAN PLATELET VOLUME 11.4 fl (7.0-11.0); MONO # 1.3 (0.1-0.6); MONO % 9.2 % (1.0-6.0); PLATELET COUNT 234 10^3/uL (120.0-450.0); RED CELL DISTRIBUTION WIDTH 12.5 % (11.5-14.5); WHITE BLOOD COUNT 14.3 10^3/ul (4.5-11.0)
[2017-05-02 08:00] LABS: ALB/GLOB RATIO 0.9 (1.1-1.8); ALKALINE PHOSPHATASE 181 U/L (38-133); ALT/SGPT 111 U/L (7-56); AST/SGOT 61 U/L (15-59); BILIRUBIN,TOTAL 1.1 mg/dL (0.2-1.3); BLOOD UREA NITROGEN 11 mg/dL (7-21); CALCIUM 8.8 mg/dL (8.4-10.5); CARBON DIOXIDE 28 mmol/L (21-33); CHLORIDE 104 mmol/L (98-107); GFR AFRICAN-AMERICAN > 60; GLUCOSE,RANDOM 98 mg/dL (70-110); MAGNESIUM 1.9 mg/dL (1.7-2.2); PHOSPHOROUS 2.9 mg/dL (2.5-4.5); POTASSIUM 3.1 mmol/L (3.6-5.0); SODIUM 141 mmol/L (132-148); TOTAL PROTEIN 6.1 g/dL (5.8-8.3)
[2017-05-02] MEDS: Budesonide 0.5 mg/2 ml Inhal Susp UD IH SCH ×2 (08:12→19:40)
[2017-05-02] MEDS: Acetylcysteine 20% Inhal Soln (4ml) IH SCH ×2 (08:12→19:40)
[2017-05-02] MEDS ORDERED: Potassium Chloride 40 mEq/30 ml LIQ UD PO ONE (08:49)
--- NOTE | 2017-05-02 09:30 | RAD ---
HISTORY: s/p lt thoracentesis COMPARISON: 04/30/2017 TECHNIQUE: Chest PA and lateral FINDINGS: LUNGS: No active pulmonary disease. PLEURA: There is a significant decrease in the large left pleural effusion. There is no pneumothorax CARDIOVASCULAR: Normal. OSSEOUS STRUCTURES: No significant abnormalities. VISUALIZED UPPER ABDOMEN: Normal. OTHER FINDINGS: None. IMPRESSION: There is a significant decrease in the large left pleural effusion. There is no pneumothorax
[2017-05-02] MEDS: Pantoprazole 40 mg EC Tab PO SCH (09:56)
[2017-05-02] MEDS: Enoxaparin 40 mg Syringe SC SCH (09:56)
--- NOTE | 2017-05-02 11:27 | CP.PCM.PN ---
Subjective - Date & Time of Evaluation Date of Evaluation: 05/02/17 Time of Evaluation: 10:50 - Subjective Subjective: Comfortable on a chair, had thoracentesis done yesterday with improvement in breathing, had one episode of low grade fever last night. Objective - Vital Signs/Intake and Output Vital Signs (last 24 hours): Temp Pulse Resp BP Pulse Ox 99.4 F 98 H 20 134/85 97 05/02/17 06:00 05/02/17 06:00 05/02/17 06:00 05/02/17 06:00 05/02/17 06:00 Intake and Output: 05/02/17 05/02/17 06:59 18:59 Intake Total 840 600 Output Total 1500 1000 Balance -660 -400 - Medications Medications: Current Medications Acetaminophen (Tylenol 325mg Tab) 650 mg PO Q4 PRN PRN Reason: Fever >100.4 F Last Admin: 05/01/17 01:41 Dose: 650 mg Acetylcysteine (Acetylcysteine 20%) 2 ml IH [id number] [facility] Last Admin: 05/02/17 08:12 Dose: Not Given Budesonide (Pulmicort Respules) 0.5 mg IH [id number] [facility] Last Admin: 05/02/17 08:12 Dose: Not Given Enoxaparin Sodium (Lovenox) 40 mg SC DAILY KERRY PRN Reason: Protocol Last Admin: 04/30/17 10:23 Dose: 40 mg Guaifenesin/Dextromethorphan (Robitussin Dm) 5 ml PO Q6H PRN PRN Reason: Cough Sodium Chloride (Sodium Chloride 0.9%) 1,000 mls @ 100 mls/hr IV .Q10H [facility] Last Admin: 04/29/17 17:02 Dose: 100 mls/hr Piperacillin Sod/Tazobactam Sod (Zosyn 4.5 Gm In Ns 100ml) 4.5 gm in 100 mls @ 200 mls/hr IVPB Q6 KERRY PRN Reason: Protocol Stop: 05/07/17 12:01 Last Admin: 05/02/17 05:09 Dose: 200 mls/hr Vancomycin HCl 1,440 mg/ (Sodium Chloride) 500 mls @ 250 mls/hr IV Q12 [facility] Last Admin: 05/02/17 00:57 Dose: 250 mls/hr Doxycycline Hyclate 100 mg/ (Sodium Chloride) 100 mls @ 100 mls/hr IVPB Q12 KERRY PRN Reason: Protocol Last Admin: 05/01/17 22:22 Dose: 100 mls/hr Ibuprofen (Motrin Tab) 400 mg PO TID PRN PRN Reason: Pain, moderate (4-7) Last Admin: 05/02/17 00:25 Dose: 400 mg Ipratropium [place] (Atrovent) 0.5 mg IH [id number] PRN PRN Reason: Shortness of Breath Last Admin: 05/01/17 20:03 Dose: 0.5 mg Oxycodone/Acetaminophen (Percocet 5/325 Mg Tab) 1 tab PO Q4H PRN PRN Reason: Pain, moderate (4-7) Stop: 05/04/17 13:29 Pantoprazole Sodium (Protonix Ec Tab) 40 mg PO DAILY [facility] Last Admin: 05/01/17 10:00 Dose: Not Given Potassium Chloride (Potassium Chloride Oral Soln) 40 meq PO ONCE ONE Stop: 05/02/17 08:50 - Labs Labs: 05/02/17 07:00 05/02/17 07:00 PT 11.5 Seconds (9.9-11.8) 05/01/17 07:07 INR 1.06 (0.93-1.08) 05/01/17 07:07 APTT 30.6 Seconds (23.7-30.8) 05/01/17 07:07 - Constitutional Appears: Non-toxic, No Acute Distress - Head Exam Head Exam: NORMAL INSPECTION - ENT Exam ENT Exam: Mucous Membranes Moist - Neck Exam Neck Exam: absent: Lymphadenopathy, Meningismus - Respiratory Exam Respiratory Exam: Decreased Breath Sounds - Cardiovascular Exam Cardiovascular Exam: +S1, +S2 - GI/Abdominal Exam GI & Abdominal Exam: Soft. absent: Tenderness Assessment and Plan - Assessment and Plan (Free Text) Plan: Assessment Sepsis due to left sided severe community-acquired pneumonia with associated left parapneumonic effusion R/O empyema S/P ultrasound-guided thoracentesis POD #1 rheumatic fever as a child brain cyst S/P resection S/P discectomy obesity with BMI 34 Plan continue Vancomycin, Zosyn and Doxycycline (day 2); follow up pleural fluid analysis will continue to monitor clinically, trend WBC count, trend fever curve Discussed with Dr. Chase (Pulmonary)
--- NOTE | 2017-05-02 12:24 | CP.PCM.PN ---
<Shirley Ruano - Last Filed: 05/02/17 16:45> Subjective - Date & Time of Evaluation Date of Evaluation: 05/02/17 Time of Evaluation: 07:15 - Subjective Subjective: Shirley Ruano DO, PGY-1, Internal Medicine, Hospitalist Service Patient seen and examined at bedside. Per nursing, no acute events overnight. Patient went for thoracentesis with IR yesterday. 1L of fluid was removed, tolerated procedure well. No complaints at this time. Breathing improving. Denies headache, dizziness, CP, abdominal pain, urinary symptoms, diarrhea, constipation. Objective - Vital Signs/Intake and Output Vital Signs (last 24 hours): Temp Pulse Resp BP Pulse Ox 99.4 F 112 H 20 134/85 97 05/02/17 06:00 05/02/17 10:00 05/02/17 06:00 05/02/17 06:00 05/02/17 06:00 Intake and Output: 05/02/17 05/02/17 06:59 18:59 Intake Total 840 600 Output Total 1500 1000 Balance -660 -400 - Medications Medications: Current Medications Acetaminophen (Tylenol 325mg Tab) 650 mg PO Q4 PRN PRN Reason: Fever >100.4 F Last Admin: 05/01/17 01:41 Dose: 650 mg Acetylcysteine (Acetylcysteine 20%) 2 ml [facility] [id number] [facility] Last Admin: 05/02/17 08:12 Dose: Not Given Budesonide (Pulmicort Respules) 0.5 mg IH [id number] [facility] Last Admin: 05/02/17 08:12 Dose: Not Given Enoxaparin Sodium (Lovenox) 40 mg SC DAILY [facility] PRN Reason: Protocol Last Admin: 05/02/17 09:56 Dose: 40 mg Guaifenesin/Dextromethorphan (Robitussin Dm) 5 ml PO Q6H PRN PRN Reason: Cough Sodium Chloride (Sodium Chloride 0.9%) 1,000 mls @ 100 mls/hr IV .Q10H [facility] Last Admin: 04/29/17 17:02 Dose: 100 mls/hr Piperacillin Sod/Tazobactam Sod (Zosyn 4.5 Gm In Ns 100ml) 4.5 gm in 100 mls @ 200 mls/hr IVPB Q6 [facility] PRN Reason: Protocol Stop: 05/07/17 12:01 Last Admin: 05/02/17 05:09 Dose: 200 mls/hr Vancomycin HCl 1,440 mg/ (Sodium Chloride) 500 mls @ 250 mls/hr IV Q12 [facility] Last Admin: 05/02/17 09:58 Dose: 250 mls/hr Doxycycline Hyclate 100 mg/ (Sodium Chloride) 100 mls @ 100 mls/hr IVPB Q12 [facility] PRN Reason: Protocol Last Admin: 05/02/17 09:56 Dose: 100 mls/hr Ibuprofen (Motrin Tab) 400 mg PO TID PRN PRN Reason: Pain, moderate (4-7) Last Admin: 05/02/17 00:25 Dose: 400 mg Ipratropium [place] (Atrovent) 0.5 mg IH [id number] PRN PRN Reason: Shortness of Breath Last Admin: 05/01/17 20:03 Dose: 0.5 mg Oxycodone/Acetaminophen (Percocet 5/325 Mg Tab) 1 tab PO Q4H PRN PRN Reason: Pain, moderate (4-7) Stop: 05/04/17 13:29 Pantoprazole Sodium (Protonix Ec Tab) 40 mg PO DAILY [facility] Last Admin: 05/02/17 09:56 Dose: 40 mg Potassium Chloride (Potassium Chloride Oral Soln) 40 meq PO Q4 [facility] Stop: 05/02/17 16:01 - Labs Labs: 05/02/17 07:00 05/02/17 07:00 PT 11.5 Seconds (9.9-11.8) 05/01/17 07:07 INR 1.06 (0.93-1.08) 05/01/17 07:07 APTT 30.6 Seconds (23.7-30.8) 05/01/17 07:07 - Constitutional Appears: Well, No Acute Distress - Head Exam Head Exam: ATRAUMATIC, NORMAL INSPECTION - Eye Exam Eye Exam: EOMI, Normal appearance Pupil Exam: NORMAL ACCOMODATION - ENT Exam ENT Exam: Mucous Membranes Moist - Neck Exam Neck Exam: Full ROM - Respiratory Exam Respiratory Exam: Decreased Breath Sounds, Rhonchi, NORMAL BREATHING PATTERN. absent: Respiratory Distress - Cardiovascular Exam Cardiovascular Exam: REGULAR RHYTHM, +S1, +S2 Assessment and Plan - Assessment and Plan (Free Text) Assessment: 46 M with pmhx of rheumatic fever as a child and colloid cyst presents with 1 week history of shoulder pain that radiates to L subcostal region. CT chest showing dense consolidation with air bronchograms in Left lower lobe consistent with pneumonia, small L pleural effusion Plan: 1. Sepsis likely 2/2 to community acquired pneumonia - Stable, afebrile, tmax 100.5 - Leukocytosis improving, 14.3 today - Clinically patient improving - Continue Zosyn (day 4), Vancomycin (day 3), doxycycline (day 3) - ID on consult, will, f/u recommendations - F/U CT chest - Pumonary on consult, f/u recommendations - Tylenol prn fever, Motrin prn pain - Duonebs prn SOB, Mucomyst, pulmicort - Urine legionalla ag negative, strep pneumo ag negative - Encourage Incentive Spirometry - Blood cx no growth - Sputum cultures pending 2. L sided pleural effusion, likely parapneumotic - Echo - normal EF - Repeat Chest CT: Large L pleural effusion with compressive atelectasis in LLL and DARYN, Trace R pleural effusion - S/P Thoracentesis with IR, 1L of fluid removed - F/U fluid anaylsis - F/U CT Chest 3. Transaminitis, Hyperbilirubinemia, mild - CT abd/pelvis: Liver unremarkable, no gross lesions or ductal dilation, gallbladder unremarkable - Hepatitis panel negative - UDS shows cannabinoids positive - Continue to monitor - Avoid hepatotoxic agents 4. Hypokalemia - Repleted - continue to monitor 5. GI/DVT PPx - Protonix 40mg PO daily - Continue Lovenox <Charles Chase B - Last Filed: 05/05/17 15:44> Objective - Vital Signs/Intake and Output Vital Signs (last 24 hours): Temp Pulse Resp BP Pulse Ox 99.7 F H 110 H 22 140/90 98 05/05/17 08:24 05/05/17 10:00 05/05/17 08:24 05/05/17 08:24 05/05/17 08:24 Intake and Output: 05/05/17 05/05/17 06:59 18:59 Intake Total 3500 Balance 3500 - Medications Medications: Current Medications Acetaminophen (Tylenol 325mg Tab) 650 mg PO Q4 PRN PRN Reason: Fever >100.4 F Last Admin: 05/03/17 08:17 Dose: 650 mg Acetylcysteine (Acetylcysteine 20%) 2 ml [facility] [id number] [facility] Last Admin: 05/05/17 07:39 Dose: 2 ml Budesonide (Pulmicort Respules) 0.5 mg IH [id number] [facility] Last Admin: 05/05/17 07:39 Dose: 0.5 mg Enoxaparin Sodium (Lovenox) 40 mg SC DAILY [facility] PRN Reason: Protocol Last Admin: 05/05/17 10:09 Dose: Not Given Guaifenesin/Dextromethorphan (Robitussin Dm) 5 ml PO Q6H PRN PRN Reason: Cough Sodium Chloride (Sodium Chloride 0.9%) 1,000 mls @ 100 mls/hr IV .Q10H [facility] Last Admin: 05/05/17 02:45 Dose: 100 mls/hr Piperacillin Sod/Tazobactam Sod (Zosyn 4.5 Gm In Ns 100ml) 4.5 gm in 100 mls @ 200 mls/hr IVPB Q6 [facility] PRN Reason: Protocol Stop: 05/07/17 12:01 Last Admin: 05/05/17 11:32 Dose: 200 mls/hr Vancomycin HCl 1,440 mg/ (Sodium Chloride) 500 mls @ 250 mls/hr IV Q12 [facility] Last Admin: 05/05/17 10:08 Dose: 250 mls/hr Doxycycline Hyclate 100 mg/ (Sodium Chloride) 100 mls @ 100 mls/hr IVPB Q12 [facility] PRN Reason: Protocol Last Admin: 05/05/17 10:09 Dose: 100 mls/hr Potassium Chloride (Potassium Chloride 10 Meq/100 Ml) 10 meq in 100 mls @ 100 mls/hr IVPB Q2H [facility] Stop: 05/05/17 18:14 Last Admin: 05/05/17 13:47 Dose: Not Given Ibuprofen (Motrin Tab) 400 mg PO TID PRN PRN Reason: Pain, moderate (4-7) Last Admin: 05/02/17 00:25 Dose: 400 mg Ipratropium [place] (Atrovent) 0.5 mg IH [id number] PRN PRN Reason: Shortness of Breath Last Admin: 05/04/17 08:34 Dose: 0.5 mg Pantoprazole Sodium (Protonix Ec Tab) 40 mg PO DAILY [facility] Last Admin: 05/05/17 10:09 Dose: 40 mg - Labs Labs: 05/05/17 12:13 05/05/17 12:13 PT 11.5 Seconds (9.9-11.8) 05/01/17 07:07 INR 1.06 (0.93-1.08) 05/01/17 07:07 APTT 30.6 Seconds (23.7-30.8) 05/01/17 07:07 Attending/Attestation - Attestation I have personally seen and examined this patient.: Yes I have fully participated in the care of the patient.: Yes I have reviewed all pertinent clinical information, including history, physical exam and plan: Yes Notes (Text): I have seen and examined patient at bedside. Agree with the above note with the following additions/ exceptions: Briefly this is 46 year old male with history of rheumatic fever, colloid brain cyst s/p resection, back surgery and drug abuse (marijuana on UDS) who was admitted for CAP with parapneumonic effusion s/ p thoracentesis (1L) . Patient continues to have fever, leukocytosis and he remains on zosyn, vanco and doxy. Pleural fluid analysis pending. Repeat CT chest pending. Discussed with ID and pulmonary. Upon discharge patient will follow up with PMD. Dr Charles Chase
[2017-05-02] MEDS: Potassium Chloride 40 mEq/30 ml LIQ UD PO SCH ×2 (13:24→17:28)
--- NOTE | 2017-05-02 16:45 | CT ---
PROCEDURE: CT Chest without contrast HISTORY: r/o malignancy COMPARISON: None. TECHNIQUE: Contiguous axial images were obtained through the chest without intravenous contrast enhancement. Sagittal and coronal reconstructions were performed. Radiation dose (DLP): 854 mGy-cm. This CT exam was performed using one or more of the following dose reduction techniques: Automated exposure control, adjustment of the mA and/or kV according to patient size, and/or use of iterative reconstruction technique. FINDINGS: LUNGS: There is persistent dense consolidation in the left lower lobe with air bronchograms. The large left pleural effusions seen previously has decreased in size following thoracentesis. There is no obvious mass or endobronchial lesion. However the consolidation could obscure an underlying mass or nodule. There is a small amount of consolidation at the right lung base and a small right pleural effusion. MEDIASTINUM: Unremarkable thoracic aorta. No aneurysm. Normal sized heart. Main pulmonary artery unremarkable. No vascular congestion. No lymphadenopathy. PLEURA: Decreased size of left effusion. Small right effusion. There is a small fluid loculation adjacent to the mediastinum anteriorly on the left. BONES: No fracture. No destructive lesion. UPPER ABDOMEN: Grossly unremarkable. OTHER FINDINGS: None. IMPRESSION: Decreased left pleural effusion following thoracentesis. There is persisting consolidation with air bronchograms. No obvious mass. See comments
[2017-05-02] MEDS: Ipratropium 0.02% Inhal Soln (0.5 mg/2.5 ml) UD IH PRN (19:40)
[2017-05-03] MEDS: Piperacill/Tazo 4.5gm in NS 4.5 GM/100 ML BAG IVPB SCH ×5 (00:46→23:13)
[2017-05-03 07:37] LABS: ADD MANUAL DIFF? NO
[2017-05-03 07:42] LABS: BASO # 0.02 K/mm3 (0.0-2.0); BASO % 0.1 % (0.0-3.0); EOS # 0.2 (0.0-0.7); EOS % 1.3 % (1.5-5.0); GRAN # 10.64 (1.4-6.5); GRAN % 78.3 % (50.0-68.0); HEMATOCRIT 31.9 % (42.0-52.0); LYMPH # 1.6 (1.2-3.4); MEAN CELL VOLUME 98.8 fl (80.0-105.0); MEAN CORPUSCULAR HEMOGLOBIN 32.8 pg (25.0-35.0); MEAN CORPUSCULAR HGB CONC 33.2 g/dl (31.0-37.0); MEAN PLATELET VOLUME 11.1 fl (7.0-11.0); MONO # 1.1 (0.1-0.6); MONO % 8.3 % (1.0-6.0); PLATELET COUNT 252 10^3/uL (120.0-450.0); RED CELL DISTRIBUTION WIDTH 12.7 % (11.5-14.5); WHITE BLOOD COUNT 13.6 10^3/ul (4.5-11.0)
[2017-05-03] MEDS: Acetylcysteine 20% Inhal Soln (4ml) IH SCH ×2 (07:58→21:20)
[2017-05-03] MEDS: Budesonide 0.5 mg/2 ml Inhal Susp UD IH SCH ×2 (07:58→21:20)
[2017-05-03 08:04] LABS: ALB/GLOB RATIO 0.9 (1.1-1.8); ALKALINE PHOSPHATASE 242 U/L (38-133); ALT/SGPT 142 U/L (7-56); AST/SGOT 68 U/L (15-59); BILIRUBIN,TOTAL 1.4 mg/dL (0.2-1.3); BLOOD UREA NITROGEN 7 mg/dL (7-21); CALCIUM 8.9 mg/dL (8.4-10.5); CARBON DIOXIDE 28 mmol/L (21-33); CHLORIDE 103 mmol/L (98-107); GFR AFRICAN-AMERICAN > 60; GLUCOSE,RANDOM 98 mg/dL (70-110); MAGNESIUM 1.8 mg/dL (1.7-2.2); PHOSPHOROUS 3.1 mg/dL (2.5-4.5); POTASSIUM 3.3 mmol/L (3.6-5.0); SODIUM 140 mmol/L (132-148); TOTAL PROTEIN 6.2 g/dL (5.8-8.3)
[2017-05-03] MEDS ORDERED: Potassium Chloride 40 mEq/30 ml LIQ UD PO ONE ×2 (09:27→09:28)
[2017-05-03] MEDS: Pantoprazole 40 mg EC Tab PO SCH (09:28)
[2017-05-03] MEDS: Enoxaparin 40 mg Syringe SC SCH (09:28)
--- NOTE | 2017-05-03 10:55 | CP.PCM.PN ---
Subjective - Date & Time of Evaluation Date of Evaluation: 05/02/17 Time of Evaluation: 14:00 - Subjective Subjective: No acute events overnight. Subjectively feels better after pleural fluid drainage. No further pain or sputum production. Objective - Vital Signs/Intake and Output Vital Signs (last 24 hours): Temp Pulse Resp BP Pulse Ox 100.8 F H 116 H 19 143/89 94 L 05/03/17 06:00 05/03/17 06:00 05/03/17 06:00 05/03/17 06:00 05/03/17 06:00 Intake and Output: 05/03/17 05/03/17 06:59 18:59 Intake Total 1020 Output Total 1300 Balance -280 - Medications Medications: Current Medications Acetaminophen (Tylenol 325mg Tab) 650 mg PO Q4 PRN PRN Reason: Fever >100.4 F Last Admin: 05/03/17 08:17 Dose: 650 mg Acetylcysteine (Acetylcysteine 20%) 2 ml IH [id number] [facility] Last Admin: 05/03/17 07:58 Dose: 2 ml Budesonide (Pulmicort Respules) 0.5 mg IH [id number] [facility] Last Admin: 05/03/17 07:58 Dose: 0.5 mg Enoxaparin Sodium (Lovenox) 40 mg SC DAILY [facility] PRN Reason: Protocol Last Admin: 05/03/17 09:28 Dose: 40 mg Guaifenesin/Dextromethorphan (Robitussin Dm) 5 ml PO Q6H PRN PRN Reason: Cough Sodium Chloride (Sodium Chloride 0.9%) 1,000 mls @ 100 mls/hr IV .Q10H [facility] Last Admin: 04/29/17 17:02 Dose: 100 mls/hr Piperacillin Sod/Tazobactam Sod (Zosyn 4.5 Gm In Ns 100ml) 4.5 gm in 100 mls @ 200 mls/hr IVPB Q6 [facility] PRN Reason: Protocol Stop: 05/07/17 12:01 Last Admin: 05/03/17 05:31 Dose: 200 mls/hr Vancomycin HCl 1,440 mg/ (Sodium Chloride) 500 mls @ 250 mls/hr IV Q12 [facility] Last Admin: 05/02/17 23:15 Dose: 250 mls/hr Doxycycline Hyclate 100 mg/ (Sodium Chloride) 100 mls @ 100 mls/hr IVPB Q12 [facility] PRN Reason: Protocol Last Admin: 05/03/17 09:18 Dose: 100 mls/hr Ibuprofen (Motrin Tab) 400 mg PO TID PRN PRN Reason: Pain, moderate (4-7) Last Admin: 05/02/17 00:25 Dose: 400 mg Ipratropium [place] (Atrovent) 0.5 mg IH [id number] PRN PRN Reason: Shortness of Breath Last Admin: 05/02/17 19:40 Dose: 0.5 mg Oxycodone/Acetaminophen (Percocet 5/325 Mg Tab) 1 tab PO Q4H PRN PRN Reason: Pain, moderate (4-7) Stop: 05/04/17 13:29 Pantoprazole Sodium (Protonix Ec Tab) 40 mg PO DAILY [facility] Last Admin: 05/03/17 09:28 Dose: 40 mg - Labs Labs: 05/03/17 07:00 05/03/17 07:00 PT 11.5 Seconds (9.9-11.8) 05/01/17 07:07 INR 1.06 (0.93-1.08) 05/01/17 07:07 APTT 30.6 Seconds (23.7-30.8) 05/01/17 07:07 - Head Exam Head Exam: ATRAUMATIC, NORMAL INSPECTION - Eye Exam Eye Exam: EOMI, Normal appearance Pupil Exam: NORMAL ACCOMODATION, PERRL - ENT Exam ENT Exam: Mucous Membranes Moist, Normal Exam - Neck Exam Neck Exam: Normal Inspection - Respiratory Exam Respiratory Exam: Decreased Breath Sounds, NORMAL BREATHING PATTERN - Cardiovascular Exam Cardiovascular Exam: REGULAR RHYTHM - GI/Abdominal Exam GI & Abdominal Exam: Normal Bowel Sounds - Extremities Exam Extremities Exam: Full ROM, Normal Inspection - Back Exam Back Exam: NORMAL INSPECTION - Neurological Exam Neurological Exam: Alert, Awake Assessment and Plan - Assessment and Plan (Free Text) Assessment: 46 y/o M w/ reccurent L Pleural effusion of undetermined cause r/O Parapneumonic effusion, uncomplicated vs Complicated. Incomplete pleural studies were sent. No LDh or protein noted. Fluid analysis suggests likely exudate. Exudate pending cx results and Cytology to help with malignancy vs infection. Connective tissue ds/ Rheumatologic causes have not been determined Will likely need more tissue or repeat Thoracentesis if all diagnostic studies are negative at this point. Continue ABX. will follow along
[2017-05-03] MEDS: SODIUM CHLORIDE 0.9% IV SCH ×2 (11:55→21:05)
[2017-05-03] MEDS: VANCOMYCIN IV SCH ×2 (11:55→21:05)
--- NOTE | 2017-05-03 13:43 | CP.PCM.PN ---
<Shirley Ruano - Last Filed: 05/03/17 15:12> Subjective - Date & Time of Evaluation Date of Evaluation: 05/03/17 Time of Evaluation: 07:30 - Subjective Subjective: Shirley Ruano DO, PGY-1, Internal Medicine, Hospitalist Service Patient seen and examined at bedside. Per nursing, no acute events last night. Patient had a fever of 100.8. Reports feeling better, pain controlled, tolerating diet. SOB improving. Denies headache, dizziness, cp, palpitations, abdominal pain, urinary symptoms, changes in bowel habits. Objective - Vital Signs/Intake and Output Vital Signs (last 24 hours): Temp Pulse Resp BP Pulse Ox 100.8 F H 116 H 19 143/89 94 L 05/03/17 06:00 05/03/17 06:00 05/03/17 06:00 05/03/17 06:00 05/03/17 06:00 Intake and Output: 05/03/17 05/03/17 06:59 18:59 Intake Total 1020 360 Output Total 1300 500 Balance -280 -140 - Medications Medications: Current Medications Acetaminophen (Tylenol 325mg Tab) 650 mg PO Q4 PRN PRN Reason: Fever >100.4 F Last Admin: 05/03/17 08:17 Dose: 650 mg Acetylcysteine (Acetylcysteine 20%) 2 ml [facility] [id number] [facility] Last Admin: 05/03/17 07:58 Dose: 2 ml Budesonide (Pulmicort Respules) 0.5 mg [facility]H [id number] [facility] Last Admin: 05/03/17 07:58 Dose: 0.5 mg Enoxaparin Sodium (Lovenox) 40 mg SC DAILY [facility] PRN Reason: Protocol Last Admin: 05/03/17 09:28 Dose: 40 mg Guaifenesin/Dextromethorphan (Robitussin Dm) 5 ml PO Q6H PRN PRN Reason: Cough Sodium Chloride (Sodium Chloride 0.9%) 1,000 mls @ 100 mls/hr IV .Q10H [facility] Last Admin: 04/29/17 17:02 Dose: 100 mls/hr Piperacillin Sod/Tazobactam Sod (Zosyn 4.5 Gm In Ns 100ml) 4.5 gm in 100 mls @ 200 mls/hr IVPB Q6 [facility] PRN Reason: Protocol Stop: 05/07/17 12:01 Last Admin: 05/03/17 05:31 Dose: 200 mls/hr Vancomycin HCl 1,440 mg/ (Sodium Chloride) 500 mls @ 250 mls/hr IV Q12 [facility] Last Admin: 05/03/17 11:55 Dose: 250 mls/hr Doxycycline Hyclate 100 mg/ (Sodium Chloride) 100 mls @ 100 mls/hr IVPB Q12 [facility] PRN Reason: Protocol Last Admin: 05/03/17 09:18 Dose: 100 mls/hr Ibuprofen (Motrin Tab) 400 mg PO TID PRN PRN Reason: Pain, moderate (4-7) Last Admin: 05/02/17 00:25 Dose: 400 mg Ipratropium [place] (Atrovent) 0.5 mg IH [id number] PRN PRN Reason: Shortness of Breath Last Admin: 05/02/17 19:40 Dose: 0.5 mg Oxycodone/Acetaminophen (Percocet 5/325 Mg Tab) 1 tab PO Q4H PRN PRN Reason: Pain, moderate (4-7) Stop: 05/04/17 13:29 Pantoprazole Sodium (Protonix Ec Tab) 40 mg PO DAILY [facility] Last Admin: 05/03/17 09:28 Dose: 40 mg - Labs Labs: 05/03/17 07:00 05/03/17 07:00 PT 11.5 Seconds (9.9-11.8) 05/01/17 07:07 INR 1.06 (0.93-1.08) 05/01/17 07:07 APTT 30.6 Seconds (23.7-30.8) 05/01/17 07:07 - Constitutional Appears: Well, No Acute Distress - Head Exam Head Exam: ATRAUMATIC, NORMAL INSPECTION - Eye Exam Eye Exam: EOMI, Normal appearance - ENT Exam ENT Exam: Mucous Membranes Moist - Neck Exam Neck Exam: Full ROM - Respiratory Exam Respiratory Exam: Decreased Breath Sounds, NORMAL BREATHING PATTERN. absent: Rhonchi, Wheezes - Cardiovascular Exam Cardiovascular Exam: REGULAR RHYTHM, +S1, +S2 - GI/Abdominal Exam GI & Abdominal Exam: Soft. absent: Guarding, Rigid, Tenderness - Extremities Exam Extremities Exam: Normal Inspection Assessment and Plan - Assessment and Plan (Free Text) Assessment: 46 M with pmhx of rheumatic fever as a child and colloid cyst presents with 1 week history of shoulder pain that radiates to L subcostal region. CT chest showing dense consolidation with air bronchograms in Left lower lobe consistent with pneumonia, small L pleural effusion Plan: 1. Sepsis likely 2/2 to community acquired pneumonia - Stable, afebrile, tmax 100.8 - Leukocytosis improving, 13.9 today - Clinically patient improving - Continue Zosyn (day 5), Vancomycin (day 4), doxycycline (day 4) - ID on consult, will, f/u recommendations - CT chest: persistent consolidation with air bronchograms - Pumonary on consult, f/u recommendations - Tylenol prn fever, Motrin prn pain - Duonebs prn SOB, Mucomyst, pulmicort - Urine legionalla ag negative, strep pneumo ag negative - Encourage Incentive Spirometry - Blood cx no growth - Sputum cultures growing yeast, likely contaminant 2. L sided pleural effusion, likely parapneumotic - Echo - normal EF - Repeat Chest CT: Large L pleural effusion with compressive atelectasis in LLL and DARYN, Trace R pleural effusion - S/P Thoracentesis with IR, 1L of fluid removed - F/U fluid anaylsis 3. Transaminitis, Hyperbilirubinemia, mild - CT abd/pelvis: Liver unremarkable, no gross lesions or ductal dilation, gallbladder unremarkable - Hepatitis panel negative - UDS shows cannabinoids positive - Continue to monitor - Avoid hepatotoxic agents 4. Hypokalemia - Repleted - continue to monitor 5. GI/DVT PPx - Protonix 40mg PO daily - Continue Lovenox <Charles Chase B - Last Filed: 05/05/17 15:47> Objective - Vital Signs/Intake and Output Vital Signs (last 24 hours): Temp Pulse Resp BP Pulse Ox 99.7 F H 110 H 22 140/90 98 05/05/17 08:24 05/05/17 10:00 05/05/17 08:24 05/05/17 08:24 05/05/17 08:24 Intake and Output: 05/05/17 05/05/17 06:59 18:59 Intake Total 3500 Balance 3500 - Medications Medications: Current Medications Acetaminophen (Tylenol 325mg Tab) 650 mg PO Q4 PRN PRN Reason: Fever >100.4 F Last Admin: 05/03/17 08:17 Dose: 650 mg Acetylcysteine (Acetylcysteine 20%) 2 ml [facility] [id number] [facility] Last Admin: 05/05/17 07:39 Dose: 2 ml Budesonide (Pulmicort Respules) 0.5 mg IH [id number] [facility] Last Admin: 05/05/17 07:39 Dose: 0.5 mg Enoxaparin Sodium (Lovenox) 40 mg SC DAILY [facility] PRN Reason: Protocol Last Admin: 05/05/17 10:09 Dose: Not Given Guaifenesin/Dextromethorphan (Robitussin Dm) 5 ml PO Q6H PRN PRN Reason: Cough Sodium Chloride (Sodium Chloride 0.9%) 1,000 mls @ 100 mls/hr IV .Q10H [facility] Last Admin: 05/05/17 02:45 Dose: 100 mls/hr Piperacillin Sod/Tazobactam Sod (Zosyn 4.5 Gm In Ns 100ml) 4.5 gm in 100 mls @ 200 mls/hr IVPB Q6 [facility] PRN Reason: Protocol Stop: 05/07/17 12:01 Last Admin: 05/05/17 11:32 Dose: 200 mls/hr Vancomycin HCl 1,440 mg/ (Sodium Chloride) 500 mls @ 250 mls/hr IV Q12 [facility] Last Admin: 05/05/17 10:08 Dose: 250 mls/hr Doxycycline Hyclate 100 mg/ (Sodium Chloride) 100 mls @ 100 mls/hr IVPB Q12 [facility] PRN Reason: Protocol Last Admin: 05/05/17 10:09 Dose: 100 mls/hr Potassium Chloride (Potassium Chloride 10 Meq/100 Ml) 10 meq in 100 mls @ 100 mls/hr IVPB Q2H [facility] Stop: 05/05/17 18:14 Last Admin: 05/05/17 15:28 Dose: Not Given Ibuprofen (Motrin Tab) 400 mg PO TID PRN PRN Reason: Pain, moderate (4-7) Last Admin: 05/02/17 00:25 Dose: 400 mg Ipratropium [place] (Atrovent) 0.5 mg IH [id number] PRN PRN Reason: Shortness of Breath Last Admin: 05/04/17 08:34 Dose: 0.5 mg Pantoprazole Sodium (Protonix Ec Tab) 40 mg PO DAILY [facility] Last Admin: 05/05/17 10:09 Dose: 40 mg - Labs Labs: 05/05/17 12:13 05/05/17 12:13 PT 11.5 Seconds (9.9-11.8) 05/01/17 07:07 INR 1.06 (0.93-1.08) 05/01/17 07:07 APTT 30.6 Seconds (23.7-30.8) 05/01/17 07:07 Attending/Attestation - Attestation I have personally seen and examined this patient.: Yes I have fully participated in the care of the patient.: Yes I have reviewed all pertinent clinical information, including history, physical exam and plan: Yes Notes (Text): I have seen and examined patient at bedside. Agree with the above note with the following additions/ exceptions: Briefly this is 46 year old male with history of rheumatic fever, colloid brain cyst s/p resection, back surgery and drug abuse (marijuana on UDS) who was admitted for CAP with parapneumonic effusion s/ p thoracentesis (1L) . Patient continues to have fever, leukocytosis and he remains on zosyn, vanco and doxy. Pleural fluid analysis pending. Repeat CT chest showed persistent consolidation with air bronchograms. Discussed with ID and pulmonary. Upon discharge patient will follow up with PMD. Dr Charles Chase
--- NOTE | 2017-05-03 18:42 | CP.PCM.PN ---
Subjective - Date & Time of Evaluation Date of Evaluation: 05/03/17 Time of Evaluation: 10:50 - Subjective Subjective: Still having low grade fevers, not in distress. Objective - Vital Signs/Intake and Output Vital Signs (last 24 hours): Temp Pulse Resp BP Pulse Ox 100.8 F H 116 H 19 143/89 94 L 05/03/17 06:00 05/03/17 06:00 05/03/17 06:00 05/03/17 06:00 05/03/17 06:00 Intake and Output: 05/03/17 05/03/17 06:59 18:59 Intake Total 1020 Output Total 1300 Balance -280 - Medications Medications: Current Medications Acetaminophen (Tylenol 325mg Tab) 650 mg PO Q4 PRN PRN Reason: Fever >100.4 F Last Admin: 05/03/17 08:17 Dose: 650 mg Acetylcysteine (Acetylcysteine 20%) 2 ml IH [id number] [facility] Last Admin: 05/03/17 07:58 Dose: 2 ml Budesonide (Pulmicort Respules) 0.5 mg IH [id number] [facility] Last Admin: 05/03/17 07:58 Dose: 0.5 mg Enoxaparin Sodium (Lovenox) 40 mg SC DAILY K[facility]Y PRN Reason: Protocol Last Admin: 05/03/17 09:28 Dose: 40 mg Guaifenesin/Dextromethorphan (Robitussin Dm) 5 ml PO Q6H PRN PRN Reason: Cough Sodium Chloride (Sodium Chloride 0.9%) 1,000 mls @ 100 mls/hr IV .Q10H [facility] Last Admin: 04/29/17 17:02 Dose: 100 mls/hr Piperacillin Sod/Tazobactam Sod (Zosyn 4.5 Gm In Ns 100ml) 4.5 gm in 100 mls @ 200 mls/hr IVPB Q6 [facility] PRN Reason: Protocol Stop: 05/07/17 12:01 Last Admin: 05/03/17 05:31 Dose: 200 mls/hr Vancomycin HCl 1,440 mg/ (Sodium Chloride) 500 mls @ 250 mls/hr IV Q12 [facility] Last Admin: 05/02/17 23:15 Dose: 250 mls/hr Doxycycline Hyclate 100 mg/ (Sodium Chloride) 100 mls @ 100 mls/hr IVPB Q12 [facility] PRN Reason: Protocol Last Admin: 05/03/17 09:18 Dose: 100 mls/hr Ibuprofen (Motrin Tab) 400 mg PO TID PRN PRN Reason: Pain, moderate (4-7) Last Admin: 05/02/17 00:25 Dose: 400 mg Ipratropium [place] (Atrovent) 0.5 mg IH [id number] PRN PRN Reason: Shortness of Breath Last Admin: 05/02/17 19:40 Dose: 0.5 mg Oxycodone/Acetaminophen (Percocet 5/325 Mg Tab) 1 tab PO Q4H PRN PRN Reason: Pain, moderate (4-7) Stop: 05/04/17 13:29 Pantoprazole Sodium (Protonix Ec Tab) 40 mg PO DAILY [facility] Last Admin: 05/03/17 09:28 Dose: 40 mg - Labs Labs: 05/03/17 07:00 05/03/17 07:00 PT 11.5 Seconds (9.9-11.8) 05/01/17 07:07 INR 1.06 (0.93-1.08) 05/01/17 07:07 APTT 30.6 Seconds (23.7-30.8) 05/01/17 07:07 - Constitutional Appears: Non-toxic, No Acute Distress - Head Exam Head Exam: NORMAL INSPECTION - Neck Exam Neck Exam: absent: Meningismus - Respiratory Exam Respiratory Exam: Decreased Breath Sounds - Cardiovascular Exam Cardiovascular Exam: +S1, +S2 - GI/Abdominal Exam GI & Abdominal Exam: Soft. absent: Tenderness Assessment and Plan - Assessment and Plan (Free Text) Plan: Assessment Sepsis due to left sided severe community-acquired pneumonia with associated left parapneumonic effusion R/O empyema S/P ultrasound-guided thoracentesis POD #2 rheumatic fever as a child brain cyst S/P resection S/P discectomy obesity with BMI 34 Plan continue Vancomycin, Zosyn and Doxycycline (day 3); follow up pleural fluid analysis will continue to monitor clinically, trend WBC count, trend fever curve Discussed with Dr. Chase (Pulmonary)
--- NOTE | 2017-05-03 19:03 | CP.PCM.PN ---
Subjective - Date & Time of Evaluation Date of Evaluation: 05/03/17 Time of Evaluation: 18:00 - Subjective Subjective: 46 y/o M , no new symptoms overnight. Fevers resolved, no sputum production . Feels much better Objective - Vital Signs/Intake and Output Vital Signs (last 24 hours): Temp Pulse Resp BP Pulse Ox 97.8 F 94 H 20 129/82 98 05/03/17 16:00 05/03/17 17:58 05/03/17 16:00 05/03/17 16:00 05/03/17 16:00 Intake and Output: 05/03/17 05/03/17 06:59 18:59 Intake Total 1020 360 Output Total 1300 500 Balance -280 -140 - Medications Medications: Current Medications Acetaminophen (Tylenol 325mg Tab) 650 mg PO Q4 PRN PRN Reason: Fever >100.4 F Last Admin: 05/03/17 08:17 Dose: 650 mg Acetylcysteine (Acetylcysteine 20%) 2 ml IH [id number] [facility] Last Admin: 05/03/17 07:58 Dose: 2 ml Budesonide (Pulmicort Respules) 0.5 mg IH [id number] [facility] Last Admin: 05/03/17 07:58 Dose: 0.5 mg Enoxaparin Sodium (Lovenox) 40 mg SC DAILY KERRY PRN Reason: Protocol Last Admin: 05/03/17 09:28 Dose: 40 mg Guaifenesin/Dextromethorphan (Robitussin Dm) 5 ml PO Q6H PRN PRN Reason: Cough Sodium Chloride (Sodium Chloride 0.9%) 1,000 mls @ 100 mls/hr IV .Q10H [facility] Last Admin: 04/29/17 17:02 Dose: 100 mls/hr Piperacillin Sod/Tazobactam Sod (Zosyn 4.5 Gm In Ns 100ml) 4.5 gm in 100 mls @ 200 mls/hr IVPB Q6 [facility] PRN Reason: Protocol Stop: 05/07/17 12:01 Last Admin: 05/03/17 18:22 Dose: 200 mls/hr Vancomycin HCl 1,440 mg/ (Sodium Chloride) 500 mls @ 250 mls/hr IV Q12 [facility] Last Admin: 05/03/17 11:55 Dose: 250 mls/hr Doxycycline Hyclate 100 mg/ (Sodium Chloride) 100 mls @ 100 mls/hr IVPB Q12 [facility] PRN Reason: Protocol Last Admin: 05/03/17 09:18 Dose: 100 mls/hr Ibuprofen (Motrin Tab) 400 mg PO TID PRN PRN Reason: Pain, moderate (4-7) Last Admin: 05/02/17 00:25 Dose: 400 mg Ipratropium [place] (Atrovent) 0.5 mg IH [id number] PRN PRN Reason: Shortness of Breath Last Admin: 05/02/17 19:40 Dose: 0.5 mg Oxycodone/Acetaminophen (Percocet 5/325 Mg Tab) 1 tab PO Q4H PRN PRN Reason: Pain, moderate (4-7) Stop: 05/04/17 13:29 Pantoprazole Sodium (Protonix Ec Tab) 40 mg PO DAILY KERRY Last Admin: 05/03/17 09:28 Dose: 40 mg - Labs Labs: 05/03/17 07:00 05/03/17 07:00 PT 11.5 Seconds (9.9-11.8) 05/01/17 07:07 INR 1.06 (0.93-1.08) 05/01/17 07:07 APTT 30.6 Seconds (23.7-30.8) 05/01/17 07:07 - Head Exam Head Exam: ATRAUMATIC, NORMAL INSPECTION, NORMOCEPHALIC - Eye Exam Eye Exam: EOMI, Normal appearance - ENT Exam ENT Exam: Mucous Membranes Moist - Neck Exam Neck Exam: Normal Inspection - Respiratory Exam Respiratory Exam: Decreased Breath Sounds - Cardiovascular Exam Cardiovascular Exam: REGULAR RHYTHM - GI/Abdominal Exam GI & Abdominal Exam: Normal Bowel Sounds - Extremities Exam Extremities Exam: Full ROM, Normal Inspection - Back Exam Back Exam: NORMAL INSPECTION Assessment and Plan - Assessment and Plan (Free Text) Assessment: 46 y/o M w/ Parapneumonic effusion On Multiple abx, w/o Any new cx results. No malignant cells noted on pleural fluid. LDH and Protein suggests exudative fluid . Will need to complete 14 day course of abx and would need follow up and possible repeat CT chest w contrast If pleural fluid re accumulates, would need repeat Thoracentesis and/or VATS.
[2017-05-03] MEDS: Ipratropium 0.02% Inhal Soln (0.5 mg/2.5 ml) UD IH PRN (21:20)
[2017-05-04] MEDS: Piperacill/Tazo 4.5gm in NS 4.5 GM/100 ML BAG IVPB SCH ×3 (05:42→17:53)
[2017-05-04 07:35] LABS: ADD MANUAL DIFF? NO
[2017-05-04 07:41] LABS: BASO # 0.04 K/mm3 (0.0-2.0); BASO % 0.3 % (0.0-3.0); EOS # 0.3 (0.0-0.7); EOS % 1.8 % (1.5-5.0); GRAN # 11.54 (1.4-6.5); GRAN % 79.8 % (50.0-68.0); HEMATOCRIT 33.1 % (42.0-52.0); LYMPH # 1.7 (1.2-3.4); LYMPH % 11.9 % (22.0-35.0); MEAN CELL VOLUME 99.1 fl (80.0-105.0); MEAN CORPUSCULAR HEMOGLOBIN 32.6 pg (25.0-35.0); MEAN CORPUSCULAR HGB CONC 32.9 g/dl (31.0-37.0); MEAN PLATELET VOLUME 10.9 fl (7.0-11.0); MONO # 0.9 (0.1-0.6); MONO % 6.2 % (1.0-6.0); PLATELET COUNT 302 10^3/uL (120.0-450.0); RED CELL DISTRIBUTION WIDTH 12.6 % (11.5-14.5); WHITE BLOOD COUNT 14.5 10^3/ul (4.5-11.0)
[2017-05-04 07:54] LABS: ALKALINE PHOSPHATASE 239 U/L (38-133); ALT/SGPT 112 U/L (7-56); AST/SGOT 39 U/L (15-59); BILIRUBIN,TOTAL 1.4 mg/dL (0.2-1.3); BLOOD UREA NITROGEN 7 mg/dL (7-21); CALCIUM 9.2 mg/dL (8.4-10.5); CARBON DIOXIDE 25 mmol/L (21-33); CHLORIDE 104 mmol/L (98-107); GFR AFRICAN-AMERICAN > 60; GLUCOSE,RANDOM 96 mg/dL (70-110); MAGNESIUM 1.7 mg/dL (1.7-2.2); PHOSPHOROUS 3.9 mg/dL (2.5-4.5); POTASSIUM 3.3 mmol/L (3.6-5.0); SODIUM 140 mmol/L (132-148); TOTAL PROTEIN 6.7 g/dL (5.8-8.3)
[2017-05-04] MEDS: Ipratropium 0.02% Inhal Soln (0.5 mg/2.5 ml) UD IH PRN (08:34)
[2017-05-04] MEDS: Budesonide 0.5 mg/2 ml Inhal Susp UD IH SCH (08:34)
[2017-05-04] MEDS: Acetylcysteine 20% Inhal Soln (4ml) IH SCH (08:34)
[2017-05-04] MEDS ORDERED: Potassium Chloride 40 mEq/30 ml LIQ UD PO ONE (08:58)
[2017-05-04] MEDS ORDERED: Potassium Chloride 20 mEq/15 ml LIQ UD PO ONE (09:15)
[2017-05-04] MEDS: Pantoprazole 40 mg EC Tab PO SCH (09:53)
[2017-05-04] MEDS: Enoxaparin 40 mg Syringe SC SCH (09:53)
[2017-05-04] MEDS: VANCOMYCIN IV SCH ×2 (10:21→22:52)
[2017-05-04] MEDS: SODIUM CHLORIDE 0.9% IV SCH ×2 (10:21→22:52)
--- NOTE | 2017-05-04 15:21 | CP.PCM.PN ---
<Shirley Ruano - Last Filed: 05/04/17 15:32> Subjective - Date & Time of Evaluation Date of Evaluation: 05/04/17 Time of Evaluation: 07:45 - Subjective Subjective: Shirley Ruano DO, PGY-1, Internal Medicine, Hospitalist Service Patient seen and examined at bedside. Per nursing no acute events overnight. S/ P thoracentesis of Large L parapneumonic effusion. Patient is doing well, breathing improved. No complaints at this time, desires to go home. Denies fevers, chills, nausea, vomiting, cp, sob, palpitations, abd pain, urinary symptoms, changes in bowel habits. Objective - Vital Signs/Intake and Output Vital Signs (last 24 hours): Temp Pulse Resp BP Pulse Ox 100.4 F H 115 H 18 118/77 98 05/04/17 08:39 05/04/17 14:00 05/04/17 08:39 05/04/17 08:39 05/04/17 08:39 Intake and Output: 05/04/17 05/04/17 06:59 18:59 Intake Total 1440 600 Output Total 1300 Balance 140 600 - Medications Medications: Current Medications Acetaminophen (Tylenol 325mg Tab) 650 mg PO Q4 PRN PRN Reason: Fever >100.4 F Last Admin: 05/03/17 08:17 Dose: 650 mg Acetylcysteine (Acetylcysteine 20%) 2 ml IH [id number] [facility] Last Admin: 05/04/17 08:34 Dose: 2 ml Budesonide (Pulmicort Respules) 0.5 mg IH [id number] [facility] Last Admin: 05/04/17 08:34 Dose: 0.5 mg Enoxaparin Sodium (Lovenox) 40 mg SC DAILY [facility] PRN Reason: Protocol Last Admin: 05/04/17 09:53 Dose: 40 mg Guaifenesin/Dextromethorphan (Robitussin Dm) 5 ml PO Q6H PRN PRN Reason: Cough Sodium Chloride (Sodium Chloride 0.9%) 1,000 mls @ 100 mls/hr IV .Q10H [facility] Last Admin: 04/29/17 17:02 Dose: 100 mls/hr Piperacillin Sod/Tazobactam Sod (Zosyn 4.5 Gm In Ns 100ml) 4.5 gm in 100 mls @ 200 mls/hr IVPB Q6 [facility] PRN Reason: Protocol Stop: 05/07/17 12:01 Last Admin: 05/04/17 12:03 Dose: 200 mls/hr Vancomycin HCl 1,440 mg/ (Sodium Chloride) 500 mls @ 250 mls/hr IV Q12 [facility] Last Admin: 05/04/17 10:21 Dose: 250 mls/hr Doxycycline Hyclate 100 mg/ (Sodium Chloride) 100 mls @ 100 mls/hr IVPB Q12 [facility] PRN Reason: Protocol Last Admin: 05/04/17 09:53 Dose: 100 mls/hr Ibuprofen (Motrin Tab) 400 mg PO TID PRN PRN Reason: Pain, moderate (4-7) Last Admin: 05/02/17 00:25 Dose: 400 mg Ipratropium [place] (Atrovent) 0.5 mg IH [id number] PRN PRN Reason: Shortness of Breath Last Admin: 05/04/17 08:34 Dose: 0.5 mg Pantoprazole Sodium (Protonix Ec Tab) 40 mg PO DAILY [facility] Last Admin: 05/04/17 09:53 Dose: 40 mg - Labs Labs: 05/04/17 07:00 05/04/17 07:00 PT 11.5 Seconds (9.9-11.8) 05/01/17 07:07 INR 1.06 (0.93-1.08) 05/01/17 07:07 APTT 30.6 Seconds (23.7-30.8) 05/01/17 07:07 - Constitutional Appears: Well, No Acute Distress - Head Exam Head Exam: ATRAUMATIC, NORMAL INSPECTION, NORMOCEPHALIC - Eye Exam Eye Exam: EOMI, Normal appearance Pupil Exam: NORMAL ACCOMODATION - ENT Exam ENT Exam: Mucous Membranes Moist - Neck Exam Neck Exam: Full ROM - Respiratory Exam Respiratory Exam: Decreased Breath Sounds, NORMAL BREATHING PATTERN. absent: Rales, Rhonchi, Wheezes - Cardiovascular Exam Cardiovascular Exam: REGULAR RHYTHM, +S1, +S2 - GI/Abdominal Exam GI & Abdominal Exam: Soft, Normal Bowel Sounds. absent: Guarding, Rigid, Tenderness, Rebound - Extremities Exam Extremities Exam: Full ROM, Normal Inspection - Back Exam Back Exam: NORMAL INSPECTION - Neurological Exam Neurological Exam: Alert, Awake, Normal Gait, Oriented x3 - Psychiatric Exam Psychiatric exam: Normal Affect, Normal Mood - Skin Skin Exam: Normal Color, Warm Assessment and Plan - Assessment and Plan (Free Text) Assessment: 46 M with pmhx of rheumatic fever as a child and colloid cyst presents with 1 week history of shoulder pain that radiates to L subcostal region. CT chest showing dense consolidation with air bronchograms in Left lower lobe consistent with pneumonia, small L pleural effusion Plan: 1. Sepsis likely 2/2 to community acquired pneumonia - Stable, Tmax 100.4 - Leukocytosis slightly increased, 14.5 today - Clinically patient improving, will monitor until afebrile > 48 hrs - Continue Zosyn (day 6), Vancomycin (day 5), doxycycline (day 5) - ID on consult, will, f/u recommendations - CT chest: persistent consolidation with air bronchograms - Pumonary on consult, f/u recommendations - Tylenol prn fever, Motrin prn pain - Duonebs prn SOB, Mucomyst, pulmicort - Urine [place]ion[place] ag negative, strep pneumo ag negative - Encourage Incentive Spirometry - Blood cx no growth - Sputum cultures growing yeast, likely contaminant 2. L sided pleural effusion, likely parapneumotic - Echo - normal EF - Repeat Chest CT: Large L pleural effusion with compressive atelectasis in LLL and DARYN, Trace R pleural effusion - S/P Thoracentesis with IR, 1L of fluid removed - Fluid cx: no growth - Fluid analysis - per LDH and T protein, pleural fluid likely exudative, No malignant cells noted on pleural fluid - Pulmonology on consult, f/u recommendations - Per pulm, will need to complete 14 day course of abx and would need follow up and possible repeat CT chest w contrast - If pleural fluid re accumulates, would need repeat Thoracentesis and/or VATS 3. Transaminitis, Hyperbilirubinemia, mild - CT abd/pelvis: Liver unremarkable, no gross lesions or ductal dilation, gallbladder unremarkable - Hepatitis panel negative - UDS shows cannabinoids positive - Continue to monitor - Avoid hepatotoxic agents 4. Hypokalemia - K 3.3, Repleted - continue to monitor 5. GI/DVT PPx - Protonix 40mg PO daily - Continue Lovenox <Charles Chase B - Last Filed: 05/05/17 15:51> Objective - Vital Signs/Intake and Output Vital Signs (last 24 hours): Temp Pulse Resp BP Pulse Ox 99.7 F H 110 H 22 140/90 98 05/05/17 08:24 05/05/17 10:00 05/05/17 08:24 05/05/17 08:24 05/05/17 08:24 Intake and Output: 05/05/17 05/05/17 06:59 18:59 Intake Total 3500 Balance 3500 - Medications Medications: Current Medications Acetaminophen (Tylenol 325mg Tab) 650 mg PO Q4 PRN PRN Reason: Fever >100.4 F Last Admin: 05/03/17 08:17 Dose: 650 mg Acetylcysteine (Acetylcysteine 20%) 2 ml IH [id number] [facility] Last Admin: 05/05/17 07:39 Dose: 2 ml Budesonide (Pulmicort Respules) 0.5 mg IH [id number] [facility] Last Admin: 05/05/17 07:39 Dose: 0.5 mg Enoxaparin Sodium (Lovenox) 40 mg SC DAILY [facility] PRN Reason: Protocol Last Admin: 05/05/17 10:09 Dose: Not Given Guaifenesin/Dextromethorphan (Robitussin Dm) 5 ml PO Q6H PRN PRN Reason: Cough Sodium Chloride (Sodium Chloride 0.9%) 1,000 mls @ 100 mls/hr IV .Q10H [facility] Last Admin: 05/05/17 02:45 Dose: 100 mls/hr Piperacillin Sod/Tazobactam Sod (Zosyn 4.5 Gm In Ns 100ml) 4.5 gm in 100 mls @ 200 mls/hr IVPB Q6 [facility] PRN Reason: Protocol Stop: 05/07/17 12:01 Last Admin: 05/05/17 11:32 Dose: 200 mls/hr Vancomycin HCl 1,440 mg/ (Sodium Chloride) 500 mls @ 250 mls/hr IV Q12 [facility] Last Admin: 05/05/17 10:08 Dose: 250 mls/hr Doxycycline Hyclate 100 mg/ (Sodium Chloride) 100 mls @ 100 mls/hr IVPB Q12 [facility] PRN Reason: Protocol Last Admin: 05/05/17 10:09 Dose: 100 mls/hr Potassium Chloride (Potassium Chloride 10 Meq/100 Ml) 10 meq in 100 mls @ 100 mls/hr IVPB Q2H [facility] Stop: 05/05/17 18:14 Last Admin: 05/05/17 15:28 Dose: Not Given Ibuprofen (Motrin Tab) 400 mg PO TID PRN PRN Reason: Pain, moderate (4-7) Last Admin: 05/02/17 00:25 Dose: 400 mg Ipratropium [place] (Atrovent) 0.5 mg IH [id number] PRN PRN Reason: Shortness of Breath Last Admin: 05/04/17 08:34 Dose: 0.5 mg Pantoprazole Sodium (Protonix Ec Tab) 40 mg PO DAILY [facility] Last Admin: 05/05/17 10:09 Dose: 40 mg - Labs Labs: 05/05/17 12:13 05/05/17 12:13 PT 11.5 Seconds (9.9-11.8) 05/01/17 07:07 INR 1.06 (0.93-1.08) 05/01/17 07:07 APTT 30.6 Seconds (23.7-30.8) 05/01/17 07:07 Attending/Attestation - Attestation I have personally seen and examined this patient.: Yes I have fully participated in the care of the patient.: Yes I have reviewed all pertinent clinical information, including history, physical exam and plan: Yes Notes (Text): I have seen and examined patient at bedside. Agree with the above note with the following additions/ exceptions: Briefly this is 46 year old male with history of rheumatic fever, colloid brain cyst s/p resection, back surgery and drug abuse (marijuana on UDS) who was admitted for CAP with parapneumonic effusion s/ p thoracentesis (1L) . Patient continues to have fever, leukocytosis and he remains on zosyn, vanco and doxy. Pleural fluid analysis suggestive of exudative etiology. Cultures are negative so far. Quantiferon ordered to rule out TB. Repeat CT chest showed persistent consolidation with air bronchograms. Discussed with ID and pulmonary. Upon discharge patient will follow up with PMD. Dr Charles Chase
--- NOTE | 2017-05-04 17:13 | CP.PCM.PN ---
Subjective - Date & Time of Evaluation Date of Evaluation: 05/04/17 Time of Evaluation: 10:20 - Subjective Subjective: Patient is still having low grade fevers. Feeling ok this morning, not much cough, no SOB at rest. No chills. No nausea or vomiting, no diarrhea. Objective - Vital Signs/Intake and Output Vital Signs (last 24 hours): Temp Pulse Resp BP Pulse Ox 98.5 F 80 18 138/74 99 05/04/17 03:12 05/04/17 03:12 05/04/17 03:12 05/04/17 03:12 05/03/17 17:54 Intake and Output: 05/03/17 05/04/17 18:59 06:59 Intake Total 2360 1200 Output Total 500 Balance 1860 1200 - Medications Medications: Current Medications Acetaminophen (Tylenol 325mg Tab) 650 mg PO Q4 PRN PRN Reason: Fever >100.4 F Last Admin: 05/03/17 08:17 Dose: 650 mg Acetylcysteine (Acetylcysteine 20%) 2 ml IH [id number] [facility] Last Admin: 05/03/17 21:20 Dose: 2 ml Budesonide (Pulmicort Respules) 0.5 mg IH [id number] [facility] Last Admin: 05/03/17 21:20 Dose: 0.5 mg Enoxaparin Sodium (Lovenox) 40 mg SC DAILY [facility] PRN Reason: Protocol Last Admin: 05/03/17 09:28 Dose: 40 mg Guaifenesin/Dextromethorphan (Robitussin Dm) 5 ml PO Q6H PRN PRN Reason: Cough Sodium Chloride (Sodium Chloride 0.9%) 1,000 mls @ 100 mls/hr IV .Q10H [facility] Last Admin: 04/29/17 17:02 Dose: 100 mls/hr Piperacillin Sod/Tazobactam Sod (Zosyn 4.5 Gm In Ns 100ml) 4.5 gm in 100 mls @ 200 mls/hr IVPB Q6 [facility] PRN Reason: Protocol Stop: 05/07/17 12:01 Last Admin: 05/04/17 05:42 Dose: 200 mls/hr Vancomycin HCl 1,440 mg/ (Sodium Chloride) 500 mls @ 250 mls/hr IV Q12 [facility] Last Admin: 05/03/17 21:05 Dose: 250 mls/hr Doxycycline Hyclate 100 mg/ (Sodium Chloride) 100 mls @ 100 mls/hr IVPB Q12 [facility] PRN Reason: Protocol Last Admin: 05/03/17 23:05 Dose: 100 mls/hr Ibuprofen (Motrin Tab) 400 mg PO TID PRN PRN Reason: Pain, moderate (4-7) Last Admin: 05/02/17 00:25 Dose: 400 mg Ipratropium [place] (Atrovent) 0.5 mg IH [id number] PRN PRN Reason: Shortness of Breath Last Admin: 05/03/17 21:20 Dose: 0.5 mg Oxycodone/Acetaminophen (Percocet 5/325 Mg Tab) 1 tab PO Q4H PRN PRN Reason: Pain, moderate (4-7) Stop: 05/04/17 13:29 Pantoprazole Sodium (Protonix Ec Tab) 40 mg PO DAILY [facility] Last Admin: 05/03/17 09:28 Dose: 40 mg - Labs Labs: 05/03/17 07:00 05/03/17 07:00 PT 11.5 Seconds (9.9-11.8) 05/01/17 07:07 INR 1.06 (0.93-1.08) 05/01/17 07:07 APTT 30.6 Seconds (23.7-30.8) 05/01/17 07:07 - Constitutional Appears: Non-toxic, No Acute Distress - Head Exam Head Exam: NORMAL INSPECTION - ENT Exam ENT Exam: Mucous Membranes Moist - Neck Exam Neck Exam: absent: Lymphadenopathy, Meningismus - Respiratory Exam Respiratory Exam: Decreased Breath Sounds - Cardiovascular Exam Cardiovascular Exam: +S1, +S2 - GI/Abdominal Exam GI & Abdominal Exam: Soft. absent: Tenderness Assessment and Plan - Assessment and Plan (Free Text) Plan: Assessment Sepsis due to left sided severe community-acquired pneumonia with associated left parapneumonic effusion R/O empyema S/P ultrasound-guided thoracentesis POD #3 rheumatic fever as a child brain cyst S/P resection S/P discectomy obesity with BMI 34 Plan continue Vancomycin, Zosyn and Doxycycline (day 4); pleural fluid analysis shows exudative effusion but cx so far are negative including mycobacterial and fungal cx will continue to monitor clinically, trend WBC count, trend fever curve Discussed with Dr. Chase (Pulmonary) - unusual for TB to present with consolidative changes in the lower lobe, but will do Quantiferon TB test to rule out risk for TB will get doppler U/S of lower extremities
[2017-05-04] MEDS: Sodium Chloride 0.9% 1,000 ML IV SCH ×2 (17:54→21:22)
--- NOTE | 2017-05-04 18:28 | US ---
HISTORY: Leg pain and swelling. Evaluate for DVT PHYSICIAN(S): Glenn Lares MD. TECHNIQUE: Duplex sonography and color-flow Doppler with graded compression were used to evaluate the deep venous systems of both lower extremities. FINDINGS: The visualized deep venous systems of both lower extremities are sonographically normal and compressible. Normal wave forms and augmentation are seen. There is no sonographic evidence for deep venous thrombosis in the visualized segments of both lower extremities. IMPRESSION: No sonographic evidence for deep venous thrombosis in the visualized segments of both lower extremities.
[2017-05-05] MEDS: Sodium Chloride 0.9% 1,000 ML IV SCH ×2 (02:45→23:00)
[2017-05-05] MEDS: Piperacill/Tazo 4.5gm in NS 4.5 GM/100 ML BAG IVPB SCH ×4 (05:37→17:40)
[2017-05-05] MEDS: Budesonide 0.5 mg/2 ml Inhal Susp UD IH SCH ×2 (07:39→19:50)
[2017-05-05] MEDS: Acetylcysteine 20% Inhal Soln (4ml) IH SCH ×2 (07:39→19:47)
[2017-05-05] MEDS: SODIUM CHLORIDE 0.9% IV SCH ×2 (10:08→21:07)
[2017-05-05] MEDS: VANCOMYCIN IV SCH ×2 (10:08→21:07)
[2017-05-05] MEDS: Enoxaparin 40 mg Syringe SC SCH (10:09)
[2017-05-05] MEDS: Pantoprazole 40 mg EC Tab PO SCH (10:09)
[2017-05-05 12:15] LABS: BASO # 0.03 K/mm3 (0.0-2.0); BASO % 0.2 % (0.0-3.0); EOS # 0.2 (0.0-0.7); EOS % 1.6 % (1.5-5.0); GRAN # 11.49 (1.4-6.5); GRAN % 79.8 % (50.0-68.0); LYMPH # 1.8 (1.2-3.4); LYMPH % 12.6 % (22.0-35.0); MEAN CELL VOLUME 99.7 fl (80.0-105.0); MEAN CORPUSCULAR HEMOGLOBIN 33.6 pg (25.0-35.0); MEAN CORPUSCULAR HGB CONC 33.8 g/dl (31.0-37.0); MEAN PLATELET VOLUME 10.6 fl (7.0-11.0); MONO # 0.8 (0.1-0.6); MONO % 5.8 % (1.0-6.0); RED CELL DISTRIBUTION WIDTH 12.8 % (11.5-14.5); WHITE BLOOD COUNT 14.4 10^3/ul (4.5-11.0)
--- NOTE | 2017-05-05 12:22 | CP.PCM.PN ---
<Shirley Ruano - Last Filed: 05/05/17 13:11> Subjective - Date & Time of Evaluation Date of Evaluation: 05/05/17 Time of Evaluation: 07:30 - Subjective Subjective: Shirley Ruano DO, PGY-1, Internal Medicine, Hospitalist Service Patient seen and examined at bedside. Per nursing no acute events overnight. Patient is doing well, no acute events overnight. Ambulating and tolerating diet. Denies headache, dizziness, cp, sob, abdominal pain, urinary symptoms, changes in bowel habits. Objective - Vital Signs/Intake and Output Vital Signs (last 24 hours): Temp Pulse Resp BP Pulse Ox 99.7 F H 109 H 22 140/90 98 05/05/17 08:24 05/05/17 08:24 05/05/17 08:24 05/05/17 08:24 05/05/17 08:24 Intake and Output: 05/05/17 05/05/17 06:59 18:59 Intake Total 3500 Balance 3500 - Medications Medications: Current Medications Acetaminophen (Tylenol 325mg Tab) 650 mg PO Q4 PRN PRN Reason: Fever >100.4 F Last Admin: 05/03/17 08:17 Dose: 650 mg Acetylcysteine (Acetylcysteine 20%) 2 ml IH [id number] [facility] Last Admin: 05/05/17 07:39 Dose: 2 ml Budesonide (Pulmicort Respules) 0.5 mg IH [id number] [facility] Last Admin: 05/05/17 07:39 Dose: 0.5 mg Enoxaparin Sodium (Lovenox) 40 mg SC DAILY KERRY PRN Reason: Protocol Last Admin: 05/05/17 10:09 Dose: Not Given Guaifenesin/Dextromethorphan (Robitussin Dm) 5 ml PO Q6H PRN PRN Reason: Cough Sodium Chloride (Sodium Chloride 0.9%) 1,000 mls @ 100 mls/hr IV .Q10H [facility] Last Admin: 05/05/17 02:45 Dose: 100 mls/hr Piperacillin Sod/Tazobactam Sod (Zosyn 4.5 Gm In Ns 100ml) 4.5 gm in 100 mls @ 200 mls/hr IVPB Q6 KERRY PRN Reason: Protocol Stop: 05/07/17 12:01 Last Admin: 05/05/17 11:32 Dose: 200 mls/hr Vancomycin HCl 1,440 mg/ (Sodium Chloride) 500 mls @ 250 mls/hr IV Q12 KERRY Last Admin: 05/05/17 10:08 Dose: 250 mls/hr Doxycycline Hyclate 100 mg/ (Sodium Chloride) 100 mls @ 100 mls/hr IVPB Q12 KERRY PRN Reason: Protocol Last Admin: 05/05/17 10:09 Dose: 100 mls/hr Ibuprofen (Motrin Tab) 400 mg PO TID PRN PRN Reason: Pain, moderate (4-7) Last Admin: 05/02/17 00:25 Dose: 400 mg Ipratropium [place]a (Atrovent) 0.5 mg IH [id number] PRN PRN Reason: Shortness of Breath Last Admin: 05/04/17 08:34 Dose: 0.5 mg Pantoprazole Sodium (Protonix Ec Tab) 40 mg PO DAILY [facility] Last Admin: 05/05/17 10:09 Dose: 40 mg - Labs Labs: 05/04/17 07:00 05/04/17 07:00 PT 11.5 Seconds (9.9-11.8) 05/01/17 07:07 INR 1.06 (0.93-1.08) 05/01/17 07:07 APTT 30.6 Seconds (23.7-30.8) 05/01/17 07:07 - Constitutional Appears: Well, No Acute Distress - Head Exam Head Exam: ATRAUMATIC, NORMAL INSPECTION - Eye Exam Eye Exam: EOMI, Normal appearance Pupil Exam: NORMAL ACCOMODATION - ENT Exam ENT Exam: Mucous Membranes Moist - Neck Exam Neck Exam: Full ROM - Respiratory Exam Respiratory Exam: Clear to Ausculation Bilateral. absent: Rales, Rhonchi, Wheezes - Cardiovascular Exam Cardiovascular Exam: REGULAR RHYTHM, +S1, +S2 - GI/Abdominal Exam GI & Abdominal Exam: Soft, Normal Bowel Sounds. absent: Guarding, Rigid, Tenderness - Extremities Exam Extremities Exam: Normal Inspection. absent: Calf Tenderness, Pedal Edema - Back Exam Back Exam: NORMAL INSPECTION - Neurological Exam Neurological Exam: Alert, Awake, Normal Gait, Oriented x3 - Psychiatric Exam Psychiatric exam: Normal Affect, Normal Mood - Skin Skin Exam: Normal Color, Warm Assessment and Plan - Assessment and Plan (Free Text) Assessment: 46 M with pmhx of rheumatic fever as a child and colloid cyst presents with 1 week history of shoulder pain that radiates to L subcostal region. CT chest showing dense consolidation with air bronchograms in Left lower lobe consistent with pneumonia, small L pleural effusion Plan: 1. Sepsis likely 2/2 to community acquired pneumonia - Stable, afebrile - WBC 14.4 today - Clinically patient improving, will monitor until afebrile > 48 hrs - Continue Zosyn (day 7), Vancomycin (day 6), doxycycline (day 6) - ID on consult, will, f/u recommendations - CT chest: persistent consolidation with air bronchograms - Pumonary on consult, f/u recommendations - Tylenol prn fever, Motrin prn pain - Duonebs prn SOB, Mucomyst, pulmicort - Urine legionalla ag negative, strep pneumo ag negative - Encourage Incentive Spirometry - Blood cx no growth - Sputum cultures growing yeast, likely contaminant 2. L sided pleural effusion, likely parapneumotic - Echo - normal EF - Repeat Chest CT: Large L pleural effusion with compressive atelectasis in LLL and DARYN, Trace R pleural effusion - S/P Thoracentesis with IR, 1L of fluid removed - Fluid analysis - per LDH and T protein, pleural fluid likely exudative, No malignant cells noted on pleural fluid - Fluid cx: no growth, negative Mycobacteria/fungal cx - F/U Quantiferon TB - Pulmonology on consult, f/u recommendations - Per pulm, will need to complete 14 day course of abx and would need follow up and possible repeat CT chest w contrast - If pleural fluid re accumulates, would need repeat Thoracentesis and/or VATS 3. Transaminitis, Hyperbilirubinemia, mild - CT abd/pelvis: Liver unremarkable, no gross lesions or ductal dilation, gallbladder unremarkable - Hepatitis panel negative - UDS shows cannabinoids positive - Continue to monitor - Avoid hepatotoxic agents 4. Hypokalemia - K+ 3.3, will repleat with 10 meq KCl x 3 bags - continue to monitor 5. GI/DVT PPx - Protonix 40mg PO daily - Continue Lovenox <Charles Chase B - Last Filed: 05/05/17 15:55> Objective - Vital Signs/Intake and Output Vital Signs (last 24 hours): Temp Pulse Resp BP Pulse Ox 99.7 F H 110 H 22 140/90 98 05/05/17 08:24 05/05/17 10:00 05/05/17 08:24 05/05/17 08:24 05/05/17 08:24 Intake and Output: 05/05/17 05/05/17 06:59 18:59 Intake Total 3500 Balance 3500 - Medications Medications: Current Medications Acetaminophen (Tylenol 325mg Tab) 650 mg PO Q4 PRN PRN Reason: Fever >100.4 F Last Admin: 05/03/17 08:17 Dose: 650 mg Acetylcysteine (Acetylcysteine 20%) 2 ml IH [id number] [facility]ERRY Last Admin: 05/05/17 07:39 Dose: 2 ml Budesonide (Pulmicort Respules) 0.5 mg IH [id number] [facility]Y Last Admin: 05/05/17 07:39 Dose: 0.5 mg Enoxaparin Sodium (Lovenox) 40 mg SC DAILY KERRY PRN Reason: Protocol Last Admin: 05/05/17 10:09 Dose: Not Given Guaifenesin/Dextromethorphan (Robitussin Dm) 5 ml PO Q6H PRN PRN Reason: Cough Sodium Chloride (Sodium Chloride 0.9%) 1,000 mls @ 100 mls/hr IV .Q10H [facility]Y Last Admin: 05/05/17 02:45 Dose: 100 mls/hr Piperacillin Sod/Tazobactam Sod (Zosyn 4.5 Gm In Ns 100ml) 4.5 gm in 100 mls @ 200 mls/hr IVPB Q6 KERRY PRN Reason: Protocol Stop: 05/07/17 12:01 Last Admin: 05/05/17 11:32 Dose: 200 mls/hr Vancomycin HCl 1,440 mg/ (Sodium Chloride) 500 mls @ 250 mls/hr IV Q12 KERRY Last Admin: 05/05/17 10:08 Dose: 250 mls/hr Doxycycline Hyclate 100 mg/ (Sodium Chloride) 100 mls @ 100 mls/hr IVPB Q12 KERRY PRN Reason: Protocol Last Admin: 05/05/17 10:09 Dose: 100 mls/hr Potassium Chloride (Potassium Chloride 10 Meq/100 Ml) 10 meq in 100 mls @ 100 mls/hr IVPB Q2H [facility]ERRY Stop: 05/05/17 18:14 Last Admin: 05/05/17 15:28 Dose: Not Given Ibuprofen (Motrin Tab) 400 mg PO TID PRN PRN Reason: Pain, moderate (4-7) Last Admin: 05/02/17 00:25 Dose: 400 mg Ipratropium Reva (Atrovent) 0.5 mg IH [id number] PRN PRN Reason: Shortness of Breath Last Admin: 05/04/17 08:34 Dose: 0.5 mg Pantoprazole Sodium (Protonix Ec Tab) 40 mg PO DAILY KERRY Last Admin: 05/05/17 10:09 Dose: 40 mg - Labs Labs: 05/05/17 12:13 05/05/17 12:13 PT 11.5 Seconds (9.9-11.8) 05/01/17 07:07 INR 1.06 (0.93-1.08) 05/01/17 07:07 APTT 30.6 Seconds (23.7-30.8) 05/01/17 07:07 Attending/Attestation - Attestation I have personally seen and examined this patient.: Yes I have fully participated in the care of the patient.: Yes I have reviewed all pertinent clinical information, including history, physical exam and plan: Yes Notes (Text): I have seen and examined patient at bedside. Agree with the above note with the following additions/ exceptions: Briefly this is 46 year old male with history of rheumatic fever, colloid brain cyst s/p resection, back surgery and drug abuse (marijuana on UDS) who was admitted for CAP with parapneumonic effusion s/ p thoracentesis (1L) . Patient denies any complaints. He has been afebrile for 24 hours however he continues to have leukocytosis and he remains on zosyn, vanco and doxy. Pleural fluid analysis suggestive of exudative etiology. Cultures are negative so far. Quantiferon ordered to rule out TB. Repeat CT chest showed persistent consolidation with air bronchograms. Discussed with ID and pulmonary. Upon discharge patient will follow up with PMD. Dr Charles Chase
[2017-05-05 12:34] LABS: BLOOD UREA NITROGEN 7 mg/dL (7-21); CARBON DIOXIDE 28 mmol/L (21-33); CHLORIDE 104 mmol/L (98-107); GFR AFRICAN-AMERICAN > 60; GLUCOSE,RANDOM 121 mg/dL (70-110); MAGNESIUM 1.8 mg/dL (1.7-2.2); PHOSPHOROUS 3.1 mg/dL (2.5-4.5); POTASSIUM 3.3 mmol/L (3.6-5.0); SODIUM 143 mmol/L (132-148); TOTAL PROTEIN 6.8 g/dL (5.8-8.3)
[2017-05-05 12:35] LABS: ALB/GLOB RATIO 0.9 (1.1-1.8); ALKALINE PHOSPHATASE 225 U/L (38-133); ALT/SGPT 81 U/L (7-56); AST/SGOT 30 U/L (15-59)
--- NOTE | 2017-05-05 15:42 | CP.PCM.PN ---
Subjective - Date & Time of Evaluation Date of Evaluation: 05/05/17 Time of Evaluation: 10:35 - Subjective Subjective: No fevers overnight, minimal cough, not in distress, feeling much better. Objective - Vital Signs/Intake and Output Vital Signs (last 24 hours): Temp Pulse Resp BP Pulse Ox 99.4 F 72 20 112/63 97 05/04/17 18:00 05/04/17 20:42 05/04/17 16:00 05/04/17 20:42 05/04/17 16:00 Intake and Output: 05/04/17 05/05/17 18:59 06:59 Intake Total 600 600 Balance 600 600 - Medications Medications: Current Medications Acetaminophen (Tylenol 325mg Tab) 650 mg PO Q4 PRN PRN Reason: Fever >100.4 F Last Admin: 05/03/17 08:17 Dose: 650 mg Acetylcysteine (Acetylcysteine 20%) 2 ml IH [id number] [facility] Last Admin: 05/04/17 08:34 Dose: 2 ml Budesonide (Pulmicort Respules) 0.5 mg IH [id number] [facility] Last Admin: 05/04/17 08:34 Dose: 0.5 mg Enoxaparin Sodium (Lovenox) 40 mg SC DAILY KERRY PRN Reason: Protocol Last Admin: 05/04/17 09:53 Dose: 40 mg Guaifenesin/Dextromethorphan (Robitussin Dm) 5 ml PO Q6H PRN PRN Reason: Cough Sodium Chloride (Sodium Chloride 0.9%) 1,000 mls @ 100 mls/hr IV .Q10H [facility] Last Admin: 05/05/17 02:45 Dose: 100 mls/hr Piperacillin Sod/Tazobactam Sod (Zosyn 4.5 Gm In Ns 100ml) 4.5 gm in 100 mls @ 200 mls/hr IVPB Q6 KERRY PRN Reason: Protocol Stop: 05/07/17 12:01 Last Admin: 05/05/17 05:37 Dose: 200 mls/hr Vancomycin HCl 1,440 mg/ (Sodium Chloride) 500 mls @ 250 mls/hr IV Q12 [facility] Last Admin: 05/04/17 22:52 Dose: 250 mls/hr Doxycycline Hyclate 100 mg/ (Sodium Chloride) 100 mls @ 100 mls/hr IVPB Q12 [facility] PRN Reason: Protocol Last Admin: 05/04/17 21:16 Dose: 100 mls/hr Ibuprofen (Motrin Tab) 400 mg PO TID PRN PRN Reason: Pain, moderate (4-7) Last Admin: 05/02/17 00:25 Dose: 400 mg Ipratropium [place] (Atrovent) 0.5 mg IH [id number] PRN PRN Reason: Shortness of Breath Last Admin: 05/04/17 08:34 Dose: 0.5 mg Pantoprazole Sodium (Protonix Ec Tab) 40 mg PO DAILY KERRY Last Admin: 05/04/17 09:53 Dose: 40 mg - Labs Labs: 05/04/17 07:00 05/04/17 07:00 PT 11.5 Seconds (9.9-11.8) 05/01/17 07:07 INR 1.06 (0.93-1.08) 05/01/17 07:07 APTT 30.6 Seconds (23.7-30.8) 05/01/17 07:07 - Constitutional Appears: Non-toxic, No Acute Distress - Head Exam Head Exam: NORMAL INSPECTION - ENT Exam ENT Exam: Mucous Membranes Moist - Neck Exam Neck Exam: absent: Meningismus - Respiratory Exam Respiratory Exam: Decreased Breath Sounds - Cardiovascular Exam Cardiovascular Exam: +S1, +S2 - GI/Abdominal Exam GI & Abdominal Exam: Soft. absent: Tenderness Assessment and Plan - Assessment and Plan (Free Text) Plan: Assessment Sepsis due to left sided severe community-acquired pneumonia with associated left parapneumonic effusion R/O empyema S/P ultrasound-guided thoracentesis POD #3 rheumatic fever as a child brain cyst S/P resection S/P discectomy obesity with BMI 34 Plan continue Vancomycin, Zosyn and Doxycycline (day 5); pleural fluid analysis shows exudative effusion but cx so far are negative including mycobacterial and fungal cx will continue to monitor clinically, trend WBC count, trend fever curve Discussed with Dr. Chase (Pulmonary) - unusual for TB to present with consolidative changes in the lower lobe without cavitation, no mediastinal lymphadenopathy in this immunocompetent patient (and has not been exposed to people with known TB, has not traveled outside of the country) but will follow up Quantiferon TB test to rule out risk for TB
[2017-05-05 15:55] VITALS: O2SAT 97
[2017-05-05] MEDS ORDERED: Potassium Chloride 20 mEq ER Tab PO ONE (18:11)
[2017-05-05] MEDS: Ipratropium 0.02% Inhal Soln (0.5 mg/2.5 ml) UD IH PRN (19:50)
[2017-05-06] MEDS: Piperacill/Tazo 4.5gm in NS 4.5 GM/100 ML BAG IVPB SCH ×3 (02:37→12:33)
[2017-05-06 07:17] LABS: ALB/GLOB RATIO 0.9 (1.1-1.8); ALKALINE PHOSPHATASE 214 U/L (38-133); ALT/SGPT 73 U/L (7-56); AST/SGOT 29 U/L (15-59); BILIRUBIN,TOTAL 0.9 mg/dL (0.2-1.3); BLOOD UREA NITROGEN 6 mg/dL (7-21); CALCIUM 8.9 mg/dL (8.4-10.5); CARBON DIOXIDE 28 mmol/L (21-33); CHLORIDE 105 mmol/L (98-107); GFR AFRICAN-AMERICAN > 60; GLUCOSE,RANDOM 98 mg/dL (70-110); MAGNESIUM 1.9 mg/dL (1.7-2.2); PHOSPHOROUS 3.4 mg/dL (2.5-4.5); POTASSIUM 3.3 mmol/L (3.6-5.0); SODIUM 143 mmol/L (132-148); TOTAL PROTEIN 6.6 g/dL (5.8-8.3)
[2017-05-06 07:41] LABS: BASO # 0.06 K/mm3 (0.0-2.0); BASO % 0.4 % (0.0-3.0); EOS # 0.4 (0.0-0.7); EOS % 2.4 % (1.5-5.0); GRAN # 10.96 (1.4-6.5); GRAN % 75.9 % (50.0-68.0); HEMATOCRIT 31.6 % (42.0-52.0); MEAN CELL VOLUME 100.3 fl (80.0-105.0); MEAN CORPUSCULAR HGB CONC 32.9 g/dl (31.0-37.0); MONO # 1.1 (0.1-0.6); MONO % 7.3 % (1.0-6.0); RED CELL DISTRIBUTION WIDTH 13.2 % (11.5-14.5); WHITE BLOOD COUNT 14.5 10^3/ul (4.5-11.0)
[2017-05-06] MEDS ORDERED: Potassium Chloride 20 mEq ER Tab PO ONE (07:45)
[2017-05-06] MEDS: Budesonide 0.5 mg/2 ml Inhal Susp UD IH SCH (09:01)
[2017-05-06] MEDS: Acetylcysteine 20% Inhal Soln (4ml) IH SCH (09:02)
[2017-05-06] MEDS: Enoxaparin 40 mg Syringe SC SCH (09:31)
[2017-05-06] MEDS: Pantoprazole 40 mg EC Tab PO SCH (09:32)
[2017-05-06] MEDS: Sodium Chloride 0.9% 1,000 ML IV SCH (09:34)
[2017-05-06 10:04] VITALS: BP 139/92; RESP 22; TEMP 98.6
[2017-05-06] MEDS ORDERED: Potassium Chloride 40 mEq/30 ml LIQ UD PO ONE (10:06)
[2017-05-06] MEDS: SODIUM CHLORIDE 0.9% IV SCH (10:31)
[2017-05-06] MEDS: VANCOMYCIN IV SCH (10:31)
[2017-05-06 10:56] VITALS: PULSE 133
--- NOTE | 2017-05-06 17:26 | PN ---
DATE: 05/06/2017 SUBJECTIVE: The patient seen early this morning in room 375, bed 1. He is very anxious. He wants to be discharged today. He states he will not stay in hospital, he needs to leave. He has been afebrile now for 24 hours. He states he is feeling better. PHYSICAL EXAMINATION VITAL SIGNS: Temperature is 98, blood pressure is 139/92, respiratory rate of 22, heart rate of 113. HEENT: Unremarkable.. NECK: Supple. LUNGS: Have decreased breath sounds. HEART: Normal S1, S2. ABDOMEN: Soft and nontender. LABORATORY DATA: Reveals a white count of 14,500, hemoglobin is 10, with 74 % granulocytosis 14% lymphocytosis and a coagulation is noted, D-dimer is elevated. Chemistry reveals a BUN of 6, creatinine of 0.9, alkaline phosphatase of 214, ALT of 73, and procalcitonin is 0.46, CARTER is negative, HIV is negative, urine for legionella antigen is negative, strep pneumonia antigen is negative, hepatitis profile is negative, microbiology cultures are negative. There is yeast in his sputum. Blood cultures are no growth. Oral cultures are no growth. Lower extremity ultrasound is negative. Pleural fluid pathology negative for malignancy. Procalcitonin is negative. ASSESSMENT AND PLAN: This is a 46-year-old male with sepsis due to a left-sided severe community acquired pneumonia with associated left parapneumonic effusion, status post drainage and improving, with a history of rheumatic fever as a child, brain cyst. Currently, the patient insists on being discharged. I have explained to him, although he may be discharged on p.o. antibiotics, we will recommend doxycycline or Augmentin, that his anemia needs further workup. He will need a repeat imaging through resolution of the imaging and followup with a white count, hematology evaluation. He does have proteins in the urine. Will need a workup if this does resolve both for Goodpasture's, Sheela's, multiple myeloma workup, noninfectious etiology workup; however, he states he will follow up with primary doctor. He will follow up with a bridge repair crew person and take the antibiotics doxycycline or Augmentin for 7 days and he insists of being discharged and follow up with PMD, hematology and the pulmonary doctor. Case discussed with Obey, the resident on the case in detail. We will follow with you Ephraim Juárez MD [facility] # [id number]
--- NOTE | 2017-05-07 16:11 | CP.PCM.DIS ---
<CATIA WHITNEY - Last Filed: 05/07/17 16:08> Provider - Provider Date of Admission: 04/29/17 07:36 Attending physician: Charles Chase MD Primary care physician: NO PRIMARY CARE PROVIDER Consults: ID: Marquita IR: Arnaud Pulmonology: Salvatore Time Spent in preparation of Discharge (in minutes): 63 Hospital Course - Lab Results Lab Results: Micro Results 05/01/17 13:51 Pleural Fluid Gram Stain - Final 05/01/17 13:51 Pleural Fluid Anaerobic Culture - Final NO ANAEROBES ISOLATED. 05/01/17 13:51 Pleural Fluid Body Fluid Culture - Final No Growth 05/01/17 13:51 Pleural Fluid Fungal Culture - Preliminary 05/01/17 13:51 Other: Please Indicate Mycobacterial Culture - Preliminary 04/30/17 09:00 Sputum Gram Stain - Final 04/30/17 09:00 Sputum Sputum Culture - Final Yeast Species Most Recent Lab Values WBC 14.5 10^3/ul (4.5-11.0) H 05/06/17 06:30 RBC 3.15 10^6/uL (3.5-6.1) L 05/06/17 06:30 Hgb 10.4 g/dL (14.0-18.0) L 05/06/17 06:30 Hct 31.6 % (42.0-52.0) L 05/06/17 06:30 MCV 100.3 fl (80.0-105.0) 05/06/17 06:30 MCH 33.0 pg (25.0-35.0) 05/06/17 06:30 MCHC 32.9 g/dl (31.0-37.0) 05/06/17 06:30 RDW 13.2 % (11.5-14.5) 05/06/17 06:30 Plt Count 364 10^3/uL (120.0-450.0) 05/06/17 06:30 MPV 11.0 fl (7.0-11.0) 05/06/17 06:30 Gran % 75.9 % (50.0-68.0) H 05/06/17 06:30 Lymph % (Auto) 14.0 % (22.0-35.0) L 05/06/17 06:30 [place] % (Auto) 7.3 % (1.0-6.0) H 05/06/17 06:30 Eos % (Auto) 2.4 % (1.5-5.0) 05/06/17 06:30 Baso % (Auto) 0.4 % (0.0-3.0) 05/06/17 06:30 Gran # 10.96 (1.4-6.5) H 05/06/17 06:30 Lymph # 2.0 (1.2-3.4) 05/06/17 06:30 [place] # 1.1 (0.1-0.6) H 05/06/17 06:30 Eos # 0.4 (0.0-0.7) 05/06/17 06:30 Baso # 0.06 K/mm3 (0.0-2.0) 05/06/17 06:30 PT 11.5 Seconds (9.9-11.8) 05/01/17 07:07 INR 1.06 (0.93-1.08) 05/01/17 07:07 APTT 30.6 Seconds (23.7-30.8) 05/01/17 07:07 D-Dimer, Quantitative 1.65 mg/L FEU (0-0.50) H 04/28/17 11:21 Sodium 143 mmol/L (132-148) 05/06/17 06:30 Potassium 3.3 mmol/L (3.6-5.0) L 05/06/17 06:30 Chloride 105 mmol/L (98-107) 05/06/17 06:30 Carbon Dioxide 28 mmol/L (21-33) 05/06/17 06:30 Anion Gap 13 (10-20) 05/06/17 06:30 BUN 6 mg/dL (7-21) L 05/06/17 06:30 Creatinine 0.9 mg/dL (0.5-1.4) 05/06/17 06:30 Est GFR ( Amer) > 60 05/06/17 06:30 Est GFR (Non-Af Amer) > 60 05/06/17 06:30 Random Glucose 98 mg/dL (70-110) 05/06/17 06:30 Calcium 8.9 mg/dL (8.4-10.5) 05/06/17 06:30 Phosphorus 3.4 mg/dL (2.5-4.5) 05/06/17 06:30 Magnesium 1.9 mg/dL (1.7-2.2) 05/06/17 06:30 Total Bilirubin 0.9 mg/dL (0.2-1.3) 05/06/17 06:30 AST 29 U/L (15-59) 05/06/17 06:30 ALT 73 U/L (7-56) H 05/06/17 06:30 Alkaline Phosphatase 214 U/L (38-133) H 05/06/17 06:30 Lactate Dehydrogenase 330 U/L (333-699) L 05/01/17 07:07 Total Creatine Kinase 55 U/L (35-230) 04/28/17 11:21 Troponin I < 0.01 ng/mL 04/28/17 11:21 C-React Prot High Sens > 15.00 mg/L (1.00-3.00) H 05/02/17 07:00 NT-Pro-B Natriuret Pep 64.0 pg/mL (0-450) 04/28/17 11:21 Total Protein 6.6 g/dL (5.8-8.3) 05/06/17 06:30 Albumin 3.2 g/dL (3.0-4.8) 05/06/17 06:30 Globulin 3.4 gm/dL 05/06/17 06:30 Albumin/Globulin Ratio 0.9 (1.1-1.8) L 05/06/17 06:30 Lipase 87 U/L (23-300) 04/28/17 11:21 Procalcitonin 0.46 NG/ML (0.19-0.49) 04/29/17 06:00 Urine Color Yellow (YELLOW) 04/28/17 11:40 Urine Appearance Clear (CLEAR) 04/28/17 11:40 Urine pH 6.0 (4.7-8.0) 04/28/17 11:40 Ur Specific [place] 1.025 (1.005-1.035) 04/28/17 11:40 Urine Protein Trace mg/dL (<30 mg/dL) H 04/28/17 11:40 Urine Glucose (UA) Negative mg/dL (NEGATIVE) 04/28/17 11:40 Urine Ketones 40 mg/dL (NEGATIVE) H 04/28/17 11:40 Urine Blood Negative (NEGATIVE) 04/28/17 11:40 Urine Nitrate Negative (NEGATIVE) 04/28/17 11:40 Urine Bilirubin Negative (NEGATIVE) 04/28/17 11:40 Urine Urobilinogen 0.2 E.U./dL (<1 E.U./dL) 04/28/17 11:40 Ur Leukocyte Esterase Negative Rayo/uL (NEGATIVE) 04/28/17 11:40 Urine RBC Negative /hpf (0-2) 04/28/17 11:40 Urine WBC 0 - 2 /hpf (0-6) 04/28/17 11:40 Ur Epithelial Cells 0 - 2 /hpf (0-5) 04/28/17 11:40 Urine Bacteria Small (NEG) 04/28/17 11:40 Fluid Source Pleural 05/01/17 13:51 Fluid Appearance Sl cloudy (CLEAR) 05/01/17 13:51 Fluid WBC 990.0 /uL (0.0-300.0) H 05/01/17 13:51 Fluid RBC 842.0 /uL (0.0-0.0) H 05/01/17 13:51 Fluid Tot Cell Count 100 (0-0) H 05/01/17 13:51 Fluid Neutrophils 86.2 % (0-0) H 05/01/17 13:51 Fluid Lymphocytes 13.8 % (0-0) H 05/01/17 13:51 Fld Monocyte/Macrophag 0 % (0-0) 05/01/17 13:51 Fluid Comment Yellow 05/01/17 13:51 Pleural pH 7.5 05/01/17 13:51 Pleural Total Protein 4.6 g/dL 05/01/17 13:51 Pleural LDH 670 U/L 05/01/17 13:51 Pleural Glucose 43 mg/dL 05/01/17 13:51 Urine Opiates Screen Negative (NEGATIVE) 04/29/17 13:05 Urine Methadone Screen Negative (NEGATIVE) 04/29/17 13:05 Ur Barbiturates Screen Negative (NEGATIVE) 04/29/17 13:05 Ur Phencyclidine Scrn Negative (NEGATIVE) 04/29/17 13:05 Ur Amphetamines Screen Negative (NEGATIVE) 04/29/17 13:05 U Benzodiazepines Scrn Negative (NEGATIVE) 04/29/17 13:05 U Oth Cocaine Metabols Negative (NEGATIVE) 04/29/17 13:05 U Cannabinoids Screen Positive (NEGATIVE) H 04/29/17 13:05 CARTER Screen Negative (Negative) 05/02/17 07:00 Hepatitis A IgM Ab Negative (NEGATIVE) 04/29/17 06:00 Hep Bs Antigen Negative (NEGATIVE) 04/29/17 06:00 Hep B Core IgM Ab Negative (NEGATIVE) 04/29/17 06:00 Hepatitis C Antibody Negative (NEGATIVE) 04/29/17 06:00 HIV 1&2 Antibody Screen Negative (NEGATIVE) 05/02/17 07:00 Ur L.pneumophila Ag Negative (NEGATIVE) 04/29/17 13:05 Ur Strep pneumoniae Ag Not detected 04/29/17 13:05 - Hospital Course Hospital Course: 46 year old male with a past medical history of rheumatic fever as a child, and colloid brain cyst s/p resection presented to the ED complaining of shoulder pain that is worse with deep breathing. Patient was found to have an elevated d- dimer and a CTA chest was ordered and showed a dense consolidation with airbronchograms in LLL consistent with pneumonia and small L pleural effusion. Patient was noted to have a mild transaminitis so we ordered a CT abdomen/ pelvis that showed the liver to be unremarkable, with no gross lesions or ductal dilation, and the gallbladder to be unremarkable as well. A hepatitis panel was ordered and found to be negative so we avoided hepatoxic agents and the LFT's trended back down WNL. Patient was noted to be tachycardic and to have a leukocytosis to 16.3 and was started on azithromycin and rocephin. A strep pneumo and legionella antigen were both found to be negative. A chest x- ray showed worsening of left lower lobe infiltrate and patient was noted to have persistent leukocytosis and fever so he was switched from his previous antibiotics to doxicycline, zosyn and vancomycin. An ECHO done to rule out CHF related causes of his effusion was negative. A Repeat CT chest showed a large L pleural effusion with compressive atelectasis in LLL and DARYN and trace R pleural effusion. IR, ID and Pulmonology were consulted. A thoracocentesis was performed and removed one liter of fluid which was determined to be exudative in nature and thought to be parapneumonic. A culture of this fluid was showed no growth. Another repeat chest CT showed persistent consolidation with air bronchograms. Blood cultures eventually were found to be negative for growth. Sputum cultures grew some yeast but this was ruled to be a contaminant. Mycobacterial and fungal cultures were negative. Pulmonology recommended patient complete a 14-day course of antibiotics and then obtain a repeat chest CT. Over the course of 7 days, patient had downtrending but persistent leukocytosis and low grade fever but was improving clinically. After patient was afebrile for 48 hours and clinically stable, he was discharged home on with prescriptions for augmentin and doxicycline and with strict instructions to follow up with his PMD, Dr. Navarro, to repeat his chest CT and follow up CBC. - Date & Time of H&P Date of H&P: 04/28/17 Time of H&P: 15:23 Discharge Exam - Head Exam Head Exam: NORMAL INSPECTION - Eye Exam Eye Exam: EOMI, Normal appearance, PERRL - ENT Exam ENT Exam: Mucous Membranes Moist, Normal Exam, Normal Oropharynx - Neck Exam Neck exam: Full Rom, Normal Inspection - Respiratory Exam Respiratory Exam: Clear to PA & Lateral, NORMAL BREATHING PATTERN, UNREMARKABLE. absent: Rales, Rhonchi, Wheezes, Respiratory Distress, Stridor - Cardiovascular Exam Cardiovascular Exam: REGULAR RHYTHM, RRR, +S1, +S2. absent: Tachycardia, Diastolic murmur, Systolic Murmur - GI/Abdominal Exam GI & Abdominal Exam: Normal Bowel Sounds, Soft, Unremarkable. absent: Distended , Firm, Guarding, Tenderness - Exam Exam: absent: Bladder Distension - Extremities Exam Extremities exam: normal capillary refill, pedal pulses present Additional comments: No calf tenderness or pedal edema bilaterally - Neurological Exam Neurological exam: Alert, Normal Gait, Oriented x3 - Psychiatric Exam Psychiatric exam: Normal Affect, Normal Mood - Skin Skin Exam: Dry, Intact, Normal Color, Warm Discharge Plan - Discharge Medications Prescriptions: Amoxicillin/Clavulanate [Augmentin 875 MG-125 MG] 1 tab PO BID #14 tab RX: Doxycycline Hyclate [Doryx] 100 mg PO BID #14 cap - Follow Up Plan Condition: STABLE Disposition: HOME/ ROUTINE Instructions: Bacterial Pneumonia (DC) Additional Instructions: 1. Please follow up with your PMD, Dr. Mike Navarro, within one week for a post hospitalization follow up visit to discuss the medical issues addressed during your admission at [facility]. Specifically, you need to repeat a CBC, to monitor your anemia and leukocytosis, and a repeat chest CT, to monitor your lungs. 2. Please take all medications as prescribed for their entire course 3. If your symptoms should worsen or persist, please seek emergency medical attention. Referrals: PCP,NO [Primary Care Provider] - Amado Lewis MD [Staff Provider] - Glenn Lares MD [Staff Provider] - <Charles Chase - Last Filed: 05/08/17 16:43> Provider - Provider Date of Admission: 04/29/17 07:36 Attending physician: Charles Chase MD Primary care physician: AMALIA PRIMARY CARE PROVIDER Hospital Course - Lab Results Lab Results: Micro Results 05/01/17 13:51 Pleural Fluid Gram Stain - Final 05/01/17 13:51 Pleural Fluid Anaerobic Culture - Final NO ANAEROBES ISOLATED. 05/01/17 13:51 Pleural Fluid Body Fluid Culture - Final No Growth 05/01/17 13:51 Pleural Fluid Fungal Culture - Preliminary 05/01/17 13:51 Other: Please Indicate Mycobacterial Culture - Preliminary 04/30/17 09:00 Sputum Gram Stain - Final 04/30/17 09:00 Sputum Sputum Culture - Final Yeast Species Most Recent Lab Values WBC 14.5 10^3/ul (4.5-11.0) H 05/06/17 06:30 RBC 3.15 10^6/uL (3.5-6.1) L 05/06/17 06:30 Hgb 10.4 g/dL (14.0-18.0) L 05/06/17 06:30 Hct 31.6 % (42.0-52.0) L 05/06/17 06:30 MCV 100.3 fl (80.0-105.0) 05/06/17 06:30 MCH 33.0 pg (25.0-35.0) 05/06/17 06:30 MCHC 32.9 g/dl (31.0-37.0) 05/06/17 06:30 RDW 13.2 % (11.5-14.5) 05/06/17 06:30 Plt Count 364 10^3/uL (120.0-450.0) 05/06/17 06:30 MPV 11.0 fl (7.0-11.0) 05/06/17 06:30 Gran % 75.9 % (50.0-68.0) H 05/06/17 06:30 Lymph % (Auto) 14.0 % (22.0-35.0) L 05/06/17 06:30 [place] % (Auto) 7.3 % (1.0-6.0) H 05/06/17 06:30 Eos % (Auto) 2.4 % (1.5-5.0) 05/06/17 06:30 Baso % (Auto) 0.4 % (0.0-3.0) 05/06/17 06:30 Gran # 10.96 (1.4-6.5) H 05/06/17 06:30 Lymph # 2.0 (1.2-3.4) 05/06/17 06:30 [place] # 1.1 (0.1-0.6) H 05/06/17 06:30 Eos # 0.4 (0.0-0.7) 05/06/17 06:30 Baso # 0.06 K/mm3 (0.0-2.0) 05/06/17 06:30 PT 11.5 Seconds (9.9-11.8) 05/01/17 07:07 INR 1.06 (0.93-1.08) 05/01/17 07:07 APTT 30.6 Seconds (23.7-30.8) 05/01/17 07:07 D-Dimer, Quantitative 1.65 mg/L FEU (0-0.50) H 04/28/17 11:21 Sodium 143 mmol/L (132-148) 05/06/17 06:30 Potassium 3.3 mmol/L (3.6-5.0) L 05/06/17 06:30 Chloride 105 mmol/L (98-107) 05/06/17 06:30 Carbon Dioxide 28 mmol/L (21-33) 05/06/17 06:30 Anion Gap 13 (10-20) 05/06/17 06:30 BUN 6 mg/dL (7-21) L 05/06/17 06:30 Creatinine 0.9 mg/dL (0.5-1.4) 05/06/17 06:30 Est GFR ( Amer) > 60 05/06/17 06:30 Est GFR (Non-Af Amer) > 60 05/06/17 06:30 Random Glucose 98 mg/dL (70-110) 05/06/17 06:30 Calcium 8.9 mg/dL (8.4-10.5) 05/06/17 06:30 Phosphorus 3.4 mg/dL (2.5-4.5) 05/06/17 06:30 Magnesium 1.9 mg/dL (1.7-2.2) 05/06/17 06:30 Total Bilirubin 0.9 mg/dL (0.2-1.3) 05/06/17 06:30 AST 29 U/L (15-59) 05/06/17 06:30 ALT 73 U/L (7-56) H 05/06/17 06:30 Alkaline Phosphatase 214 U/L (38-133) H 05/06/17 06:30 Lactate Dehydrogenase 330 U/L (333-699) L 05/01/17 07:07 Total Creatine Kinase 55 U/L (35-230) 04/28/17 11:21 Troponin I < 0.01 ng/mL 04/28/17 11:21 C-React Prot High Sens > 15.00 mg/L (1.00-3.00) H 05/02/17 07:00 NT-Pro-B Natriuret Pep 64.0 pg/mL (0-450) 04/28/17 11:21 Total Protein 6.6 g/dL (5.8-8.3) 05/06/17 06:30 Albumin 3.2 g/dL (3.0-4.8) 05/06/17 06:30 Globulin 3.4 gm/dL 05/06/17 06:30 Albumin/Globulin Ratio 0.9 (1.1-1.8) L 05/06/17 06:30 Lipase 87 U/L (23-300) 04/28/17 11:21 Procalcitonin 0.46 NG/ML (0.19-0.49) 04/29/17 06:00 Urine Color Yellow (YELLOW) 04/28/17 11:40 Urine Appearance Clear (CLEAR) 04/28/17 11:40 Urine pH 6.0 (4.7-8.0) 04/28/17 11:40 Ur Specific [place] 1.025 (1.005-1.035) 04/28/17 11:40 Urine Protein Trace mg/dL (<30 mg/dL) H 04/28/17 11:40 Urine Glucose (UA) Negative mg/dL (NEGATIVE) 04/28/17 11:40 Urine Ketones 40 mg/dL (NEGATIVE) H 04/28/17 11:40 Urine Blood Negative (NEGATIVE) 04/28/17 11:40 Urine Nitrate Negative (NEGATIVE) 04/28/17 11:40 Urine Bilirubin Negative (NEGATIVE) 04/28/17 11:40 Urine Urobilinogen 0.2 E.U./dL (<1 E.U./dL) 04/28/17 11:40 Ur Leukocyte Esterase Negative Rayo/uL (NEGATIVE) 04/28/17 11:40 Urine RBC Negative /hpf (0-2) 04/28/17 11:40 Urine WBC 0 - 2 /hpf (0-6) 04/28/17 11:40 Ur Epithelial Cells 0 - 2 /hpf (0-5) 04/28/17 11:40 Urine Bacteria Small (NEG) 04/28/17 11:40 Fluid Source Pleural 05/01/17 13:51 Fluid Appearance Sl cloudy (CLEAR) 05/01/17 13:51 Fluid WBC 990.0 /uL (0.0-300.0) H 05/01/17 13:51 Fluid RBC 842.0 /uL (0.0-0.0) H 05/01/17 13:51 Fluid Tot Cell Count 100 (0-0) H 05/01/17 13:51 Fluid Neutrophils 86.2 % (0-0) H 05/01/17 13:51 Fluid Lymphocytes 13.8 % (0-0) H 05/01/17 13:51 Fld Monocyte/Macrophag 0 % (0-0) 05/01/17 13:51 Fluid Comment Yellow 05/01/17 13:51 Pleural pH 7.5 05/01/17 13:51 Pleural Total Protein 4.6 g/dL 05/01/17 13:51 Pleural LDH 670 U/L 05/01/17 13:51 Pleural Glucose 43 mg/dL 05/01/17 13:51 Urine Opiates Screen Negative (NEGATIVE) 04/29/17 13:05 Urine Methadone Screen Negative (NEGATIVE) 04/29/17 13:05 Ur Barbiturates Screen Negative (NEGATIVE) 04/29/17 13:05 Ur Phencyclidine Scrn Negative (NEGATIVE) 04/29/17 13:05 Ur Amphetamines Screen Negative (NEGATIVE) 04/29/17 13:05 U Benzodiazepines Scrn Negative (NEGATIVE) 04/29/17 13:05 U Oth Cocaine Metabols Negative (NEGATIVE) 04/29/17 13:05 U Cannabinoids Screen Positive (NEGATIVE) H 04/29/17 13:05 CARTER Screen Negative (Negative) 05/02/17 07:00 Hepatitis A IgM Ab Negative (NEGATIVE) 04/29/17 06:00 Hep Bs Antigen Negative (NEGATIVE) 04/29/17 06:00 Hep B Core IgM Ab Negative (NEGATIVE) 04/29/17 06:00 Hepatitis C Antibody Negative (NEGATIVE) 04/29/17 06:00 HIV 1&2 Antibody Screen Negative (NEGATIVE) 05/02/17 07:00 Ur L.pneumophila Ag Negative (NEGATIVE) 04/29/17 13:05 Ur Strep pneumoniae Ag Not detected 04/29/17 13:05 TB Test (QFT) Nil TNP 05/05/17 04:30 TB Test Mitogen - Nil TNP 05/05/17 04:30 TB Test TB - Nil TNP 05/05/17 04:30 TB Test (QFT) TNP 05/05/17 04:30 Attending/Attestation - Attestation I have personally seen and examined this patient.: Yes I have fully participated in the care of the patient.: Yes I have reviewed all pertinent clinical information, including history, physical exam and plan: Yes Notes (Text): I have seen and examined patient at bedside. Agree with the above note with the following additions/ exceptions: Briefly this is 46 year old male with history of rheumatic fever, colloid brain cyst s/p resection, back surgery and drug abuse (marijuana on UDS) who was admitted for CAP with parapneumonic effusion s/ p thoracentesis (1L) . Patient denies any complaints. He has been afebrile for 48 hours however he continues to have leukocytosis and he remains on zosyn, vanco and doxy. Pleural fluid analysis suggestive of exudative etiology. Cultures are negative so far. Quantiferon still pending to rule out TB. Repeat CT chest showed persistent consolidation with air bronchograms. Discussed with ID and pulmonary. Patient insists of being discharged today. He was explained that he will need 14 days of antibiotics. Also needs to have repeat chest CT scan as an outpatient. 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 Dr Charles Chase
== END 2017-05-06 14:26 | disposition home or self-care (01) | DRG 584 ==
LOC: ED 09:57 → ERH 14:08 → 2RNO 17:42 → OBSVTOIN 04-29 07:36 → 3RSO 04-29 12:06
PROVIDERS: ADMIT Hospitalist; ATTEND Hospitalist
PROC: BB4BZZZ Ultrasonography of Pleura (ICD-10-PCS; 2017-05-01)
PROC: 0W9B3ZX Drainage of Left Pleural Cavity, Percutaneous Approach, Diagnostic (ICD-10-PCS; principal; 2017-05-01 12:00)
DX: A41.9 Sepsis, unspecified organism (principal); J18.9 Pneumonia, unspecified organism; J91.8 Pleural effusion in other conditions classified elsewhere; J98.11 Atelectasis; E87.6 Hypokalemia; E86.0 Dehydration; F12.10 Cannabis abuse, uncomplicated; E66.9 Obesity, unspecified; Z68.34 Body mass index [BMI] 34.0-34.9, adult; Z86.79 Personal history of other diseases of the circulatory system; Z86.69 Personal history of other diseases of the nervous system and sense organs